=== PATIENT | female | born 1960 | race Caucasian/White ===

== ENCOUNTER 2016-10-30 11:44 | Emergency (ER) | payer MEDICARE ==
[2016-10-30 11:56] VITALS: BP 154/94
[2016-10-30 12:55] LABS: Hematocrit 37 % (35-47); Hemoglobin 12.4 g/dl (12.0-16.0); Mean Corpuscular HGB Conc 33 g/dl (31-36); Mean Corpuscular Hemoglobin 32 pg (27-31); Mean Corpuscular Volume 96 fL (80-97); Mean Platelet Volume 9 um3 (7.4-10.4); Red Blood Count 3.86 10^6/ul (4.0-5.4); Red Cell Distribution Width 14 % (10.5-15); White Blood Count 5.5 10^3/ul (3.5-10.8)
[2016-10-30 13:06] LABS: ALT 26 U/L (7-52); AST 45 U/L (13-39); Albumin 3.7 g/dL (3.2-5.2); Alkaline Phosphatase 89 U/L (34-104); Blood Urea Nitrogen 17 mg/dL (6-24); CO2 Carbon Dioxide 25 mmol/L (22-32); Calcium 8.3 mg/dL (8.6-10.3); Chloride 103 mmol/L (101-111); EGFR African American 94.8 (>60); EGFR Non-African American 73.7 (>60); Globulin 3.2 g/dL (2-4); Glucose 88 mg/dL (70-100); Magnesium 1.4 mg/dL (1.9-2.7); Sodium 136 mmol/L (133-145); Total Protein 6.9 g/dL (6.4-8.9)
[2016-10-30 13:11] LABS: Anion Gap 8 mmol/L (2-11); Potassium 2.7 mmol/L (3.5-5.0)
--- NOTE | 2016-10-30 13:15 | RAD ---
INDICATION: Seizure COMPARISON: May 30, 2016 TECHNIQUE: PA and lateral dual-energy views were obtained. FINDINGS: Bones/Soft Tissues: There are no acute bony findings. There is prior cervical fusion Cardiomediastinal: The cardiomediastinal silhouette is normal. Lungs: There are no infiltrates. Pleura: There are no pleural effusions. Other: None IMPRESSION: NO ACTIVE DISEASE.
[2016-10-30 13:16] LABS: Alcohol < 10 mg/dL (<10); Valproic Acid < 13.0 mcg/mL (50-100)
[2016-10-30] MEDS ORDERED: Potassium Chlor TAB* 20 MEQ TAB.ER PO ONE (13:28)
[2016-10-30] MEDS: KCL 10 MEQ/50 ML IVPREMIX* 10 MEQ/50 ML BAG IV SCH ×2 (13:46→14:45)
--- NOTE | 2016-10-30 16:48 | ED ---
Nathaniel Hui Adam, scribed for Anderson Nye MD on 10/30/16 at 1245 . Neurological HPI - HPI Summary HPI Summary: Pt is a 56 year old female presenting with a seizure this morning. She states that she and her fiance were going to go to [employer] to get breakfast when she had a seizure. She denies any incontinence or tongue biting. She has a Hx of seizures and takes Topamax. She sees Dr. Davenport. Negative FMHx. - History of Current Complaint Chief Complaint: EDSeizure Stated Complaint: SEIZURE Time Seen by Provider: 10/30/16 12:10 Hx Obtained From: Patient Onset/Duration: Sudden Onset, Started hours ago, Resolved Timing: Intermittent Episodes Lasting: - Seconds Onset Severity: Moderate Current Severity: None Seizure Severity: Moderate Pain Intensity: 0 Pain Scale Used: 0-10 Numeric Aggravating: Unknown Alleviating: Spontanious Resolution Associated Signs and Symptoms: Negative: Incontinent Bladder/Bowel Related Hx: Seizure - Additional Pertinent History Primary Care Physician: JOSE L - Allergy/Home Medications Allergies/Adverse Reactions: Allergies Allergy/AdvReac Type Severity Reaction Status Date / Time Azithromycin Allergy Intermediate Flushing Verified 10/30/16 11:50 [From Zithromax Z-[place]] Levofloxacin [From Levaquin] Allergy Intermediate Flushing Verified 10/30/16 11: 50 Triamterene Allergy Intermediate Blisters Verified 10/30/16 11:50 Atenolol Allergy ITCHY RASH Verified 10/30/16 11:50 Erythromycin Allergy Rash Verified 10/30/16 11:50 Gabapentin AdvReac Intermediate Nausea And Verified 10/30/16 11:50 Vomiting Home Medications: Home Medications Rivaroxaban TAB(*) [Xarelto 20 mg] 20 mg PO DAILY WITH MEAL 10/30/16 [History Confirmed 10/30/16] Topiramate 50 mg PO BID 10/30/16 [History Confirmed 10/30/16] Tramadol ER(NF) [Ultram ER(NF)] 200 mg PO DAILY 10/30/16 [History Confirmed 09/05] traMADol TAB* [Ultram*] 50 mg PO QID PRN 10/30/16 [History Confirmed 10/30/16] PMH/Surg Hx/FS Hx/Imm Hx Endocrine/Hematology History: Reports: Hx Anticoagulant Therapy Denies: Hx Diabetes Cardiovascular History: Reports: Hx Hypertension - REACTION TO B/P MED Denies: Hx Pacemaker/ICD Respiratory History: Reports: Hx Pulmonary Embolism - 2006 TAKING XARELTO, Hx Seasonal Allergies Denies: Other Respiratory Problems/Disorders GI History: Denies: Other GI Disorders - denies History: Denies: Hx Renal Disease Musculoskeletal History: Reports: Other Musculoskeletal History - Neck Pain Sensory History: Reports: Hx Contacts or Glasses - READING GLASSES Denies: Hx Hearing Aid Opthamlomology History: Reports: Hx Contacts or Glasses - READING GLASSES Neurological History: Reports: Hx Headaches, Hx Seizures - HX OF LAST ONE 2-3 YEARS AGO, Other Neuro Impairments/Disorders Psychiatric History: Reports: Hx Anxiety - CONTROL WITH MEDS, Hx Depression, Hx Bipolar Disorder Denies: Hx Panic Disorder - Cancer History Cancer Type, Location and Year: right breast lump removed (benign) - Surgical History Surgery Procedure, Year, and Place: 11/2007 C5-C6 ACDF WITH BONE FUSION AND PLATING, [facility]. 04/2008 BILATERAL TUBAL LIGATION, [facility]. 2010 SIGMOIDOSCOPY, [facility]. 2012 EGD, [facility]. 2013 COLONOSCOPY, [facility]; CERVICAL SURGERY NOV [address] SAEZ. 2014 RIGHT BREAST LUMPECTOMY, (BENIGN), [facility]. (POLYPS REMOVED FROM THROAT X 2 AND BOWEL X 1) Hx Anesthesia Reactions: No Infectious Disease History: No Infectious Disease History: Denies: History Other Infectious Disease, Traveled Outside the in Last 30 Days - Family History Known Family History: Positive: None - Per pt - Social History Occupation: Unemployed Lives: Alone Alcohol Use: Occasionally Alcohol Amount: BEERS AND MALTED LIQUOR Hx Substance Use: No Substance Use Type: Reports: None Substance Use Comment - Amount & Last Used: Tramadol Hx Tobacco Use: Yes Smoking Status (MU): Former Smoker Type: Cigarettes Amount Used/How Often: 3-4 CIGARETTES WEEK Length of Time of Smoking/Using Tobacco: 20 YEARS Have You Smoked in the Last Year: Yes Review of Systems Genitourinary: Negative Negative: incontinence Skin: Negative - Didn't bite tongue Neurological: Other - Seizure All Other Systems Reviewed And Are Negative: Yes Physical Exam - Summary Physical Exam Summary: VITAL SIGNS: Reviewed. GENERAL: Patient is a well developed and nourished female who is lying comfortable in the stretcher. Patient is not in any acute respiratory distress. HEAD AND FACE: No signs of trauma. No ecchymosis, hematomas or skull depressions. No sinus tenderness. EYES: PERRLA, EOMI x 2, No injected conjunctiva, no nystagmus. No photophobia. EARS: Hearing grossly intact. Ear canals and tympanic membranes are within normal limits. MOUTH: Oropharynx within normal limits. NECK: Supple, trachea is midline, no adenopathy, no JVD, no carotid bruit, no c- spine tenderness, neck with full ROM. No meningeal signs, no Kernig's or brudzinskis signs. CHEST: Symmetric, no tenderness at palpation LUNGS: Clear to auscultation bilaterally. No wheezing or crackles. CVS: Regular rate and rhythm, S1 and S2 present, no murmurs or gallops appreciated. ABDOMEN: Soft, non-tender. No signs of distention. No rebound no guarding, and no masses palpated. Bowel sounds are normal. EXTREMITIES: FROM in all major joints, no edema, no cyanosis or clubbing. NEURO: Alert and oriented x 3. No acute neurological deficits. Speech is normal and follows commands. SKIN: Dry and warm Triage Information Reviewed: Yes Vital Signs On Initial Exam: Initial Vitals Temp Pulse Resp BP Pulse Ox 99.0 F 94 19 154/94 99 10/30/16 11:50 10/30/16 11:50 10/30/16 11:50 10/30/16 11:50 10/30/16 11:50 Vital Signs Reviewed: Yes Diagnostics - Vital Signs Vital Signs Temp Pulse Resp BP Pulse Ox 10/30/16 11:50 99.0 F 94 19 154/94 99 - Laboratory Lab Results: Lab Results 10/30/16 10/30/16 10/30/16 Range/Units 12:09 12:09 12:09 WBC 5.5 (3.5-10.8) 10^3/ul RBC 3.86 L (4.0-5.4) 10^6/ul Hgb 12.4 (12.0-16.0) g/dl Hct 37 (35-47) % MCV 96 (80-97) fL MCH 32 H (27-31) pg MCHC 33 (31-36) g/dl RDW 14 (10.5-15) % Plt Count 149 L (150-450) 10^3/ul MPV 9 (7.4-10.4) um3 Neut % (Auto) 48.4 (38-83) % Lymph % (Auto) 33.3 (25-47) % [place] % (Auto) 9.4 H (1-9) % Eos % (Auto) 7.0 H (0-6) % Baso % (Auto) 1.9 (0-2) % Absolute Neuts (auto) 2.7 (1.5-7.7) 10^3/ul Absolute Lymphs (auto) 1.8 (1.0-4.8) 10^3/ul Absolute Monos (auto) 0.5 (0-0.8) 10^3/ul Absolute Eos (auto) 0.4 (0-0.6) 10^3/ul Absolute Basos (auto) 0.1 (0-0.2) 10^3/ul Absolute Nucleated RBC 0 10^3/ul Nucleated RBC % 0.1 INR (Anticoag Therapy) 0.91 (0.89-1.11) Sodium 136 (133-145) mmol/L Potassium 2.7 L* (3.5-5.0) mmol/L Chloride 103 (101-111) mmol/L Carbon Dioxide 25 (22-32) mmol/L Anion Gap 8 (2-11) mmol/L BUN 17 (6-24) mg/dL Creatinine 0.81 (0.51-0.95) mg/dL Est GFR ( Amer) 94.8 (>60) Est GFR (Non-Af Amer) 73.7 (>60) BUN/Creatinine Ratio 21.0 H (8-20) Glucose 88 (70-100) mg/dL Lactic Acid (0.5-2.0) mmol/L Calcium 8.3 L (8.6-10.3) mg/dL Magnesium 1.4 L (1.9-2.7) mg/dL Total Bilirubin 0.60 (0.2-1.0) mg/dL AST 45 H (13-39) U/L ALT 26 (7-52) U/L Alkaline Phosphatase 89 (34-104) U/L Total Protein 6.9 (6.4-8.9) g/dL Albumin 3.7 (3.2-5.2) g/dL Globulin 3.2 (2-4) g/dL Albumin/Globulin Ratio 1.2 (1-3) Valproic Acid < 13.0 L (50-100) mcg/mL Serum Alcohol < 10 (<10) mg/dL 10/30/16 Range/Units 12:09 WBC (3.5-10.8) 10^3/ul RBC (4.0-5.4) 10^6/ul Hgb (12.0-16.0) g/dl Hct (35-47) % MCV (80-97) fL MCH (27-31) pg MCHC (31-36) g/dl RDW (10.5-15) % Plt Count (150-450) 10^3/ul MPV (7.4-10.4) um3 Neut % (Auto) (38-83) % Lymph % (Auto) (25-47) % [place] % (Auto) (1-9) % Eos % (Auto) (0-6) % Baso % (Auto) (0-2) % Absolute Neuts (auto) (1.5-7.7) 10^3/ul Absolute Lymphs (auto) (1.0-4.8) 10^3/ul Absolute Monos (auto) (0-0.8) 10^3/ul Absolute Eos (auto) (0-0.6) 10^3/ul Absolute Basos (auto) (0-0.2) 10^3/ul Absolute Nucleated RBC 10^3/ul Nucleated RBC % INR (Anticoag Therapy) (0.89-1.11) Sodium (133-145) mmol/L Potassium (3.5-5.0) mmol/L Chloride (101-111) mmol/L Carbon Dioxide (22-32) mmol/L Anion Gap (2-11) mmol/L BUN (6-24) mg/dL Creatinine (0.51-0.95) mg/dL Est GFR ( Amer) (>60) Est GFR (Non-Af Amer) (>60) BUN/Creatinine Ratio (8-20) Glucose (70-100) mg/dL Lactic Acid 1.6 (0.5-2.0) mmol/L Calcium (8.6-10.3) mg/dL Magnesium (1.9-2.7) mg/dL Total Bilirubin (0.2-1.0) mg/dL AST (13-39) U/L ALT (7-52) U/L Alkaline Phosphatase (34-104) U/L Total Protein (6.4-8.9) g/dL Albumin (3.2-5.2) g/dL Globulin (2-4) g/dL Albumin/Globulin Ratio (1-3) Valproic Acid (50-100) mcg/mL Serum Alcohol (<10) mg/dL Result Diagrams: 10/30/16 12:09 10/30/16 12:09 Lab Statement: Any lab studies that have been ordered have been reviewed, and results considered in the medical decision making process. - Radiology CXR Xray Interpretation: No Acute Changes Radiology Interpretation Completed By: Radiologist - EKG 11:54 Cardiac Rate: NL - 90 BPM EKG Rhythm: Sinus Rhythm - Normal EKG Interpretation: No ST elevation. Diffuse T wave abnormality. - Additional Comments Diagnostic Additional Comments: Potassium - 2.7 Course/Dx - Course Assessment/Plan: Pt is a 56 year old female presenting with a seizure this morning. She states that she and her fiance were going to go to [employer] to get breakfast when she had a seizure. She denies any incontinence or tongue biting. She has a Hx of seizures and takes Topiramate 50 mg BID[address] She sees Dr. Davenport. She reports she is adherent to her medications. Labs found to be WNL except for hypokalemia od 2.7 for which she was given potassium chloride. CXR shows no acute disease. EKG NSR w/o MARIBETH. CXR impression hiatal hernia. No active disease. EEG was done and it will be read by Dr. Davenport. I discussed the case with Dr. Davenport who recommends to increase her Topiramate dose to 50 mg AM and 100 mg PM. She will be seeing the patient tomorrow. Patient was recommended not to drive and to stop taking Ultram. Patient and her daughter understands and agree. I discussed all the findings and test results with the patient. Patient was instructed to return to the emergency room immediately if any of the symptoms return or worsens. Patient understands and agrees. Plan of care was discussed with the patient and patient understands and agrees with the plan of care. All questions were answered at patient satisfaction. There were no further complaints or concerns. Patient is alert and oriented x 3. Patient vital signs are stable. Patient is to follow up with primary care physician in the next 2 to 3 days. Patient understands and agrees. - Differential Dx Differential Diagnoses Neuro: Positive: Anxiety, Headache, Migraine, Seizure Disorder - Diagnoses Provider Diagnoses: Seizure Discharge - Discharge Plan Condition: Stable Disposition: HOME Patient Education Materials: Epilepsy (ED) Referrals: Annel Davenport MD [Medical Doctor] - Additional Instructions: Follow up with Dr. Davenport tomorrow (10/31). The documentation as recorded by the Nathaniel odonnell Adam accurately reflects the service I personally performed and the decisions made by , Anderson Nye MD.
[2016-10-30 16:57] LABS: Urine Bilirubin Negative (Negative); Urine Glucose Negative (Negative); Urine Nitrite Negative (Negative)
[2016-10-30] MEDS ORDERED: Magnesium Oxide TAB* 400 MG PO ONE (17:01)
[2016-10-30 17:04] LABS: Benzodiazepine Urine Screen None Detected (None Detect)
--- NOTE | 2016-10-31 23:33 | EEG ---
ELECTROENCEPHALOGRAPHY: DATE OF STUDY: 10/30/16 - EMERGENCY DEPT. PATIENT OF: Dr. Nye in the emergency room. HISTORY: This 56-year-old woman being evaluated for her history of seizures with a witnessed grand mal seizure, generalized motor seizure today, and then with postictal. MEDICATIONS: Include: 1. Topamax. 2. Tramadol. INTERPRETATION: With the patient awake, background cerebral activity consists of moderate amplitude posterior dominant 8 to 9 Hz rhythm, which attenuates with eye opening and reappears with eye closure. 8 to 9 Hz rhythm with admixed theta activity. There is muscle movement artifact. No activation procedures are performed. The patient never falls asleep. IMPRESSION: This EEG with the patient awake and drowsy shows no epileptiform potentials, some of the slowing noted may be due to postictal state. [id number]/[facility] #: [id number] MTDD
== END 2016-10-30 17:28 | disposition home or self-care (01) ==
LOC: ED 11:44
DX: R56.9 Unspecified convulsions (principal); Z87.891 Personal history of nicotine dependence
CPT/HCPCS: 36415; 71020; 80053; 80164; 80307; 80320; 81003; 83605; 83735; 85025; 85610; 93005; 95819; 96365; 99282; A9270-GY; G0480; J3480

== ENCOUNTER 2017-11-09 15:26 | Inpatient (IN) | payer MEDICARE ==
[2017-11-09] MEDS ORDERED: NS 0.9% 1000 ML* 1,000 ML IV ONE ×2 (16:59→17:45)
--- NOTE | 2017-11-09 17:31 | RAD ---
HISTORY: Altered mental status COMPARISONS: October 30, 2016 VIEWS: 1: frontal portable view of the chest at 5:12 PM FINDINGS: LINES AND TUBES: None. CARDIOMEDIASTINAL SILHOUETTE: The cardiomediastinal silhouette is normal for portable technique. PLEURA: The costophrenic angles are sharp. No pleural abnormalities are noted. LUNG PARENCHYMA: There is confluent alveolar opacification of left mid and lower lung mustafa. ABDOMEN: The upper abdomen is clear. There is no subphrenic gas. BONES AND SOFT TISSUES: The patient is status post anterior cervical fusion. IMPRESSION: LEFT MIDDLE AND LOWER LUNG CONSOLIDATION. RECOMMEND FOLLOW-UP UNTIL RESOLUTION TO EXCLUDE UNDERLYING PULMONARY PARENCHYMAL PATHOLOGY.
[2017-11-09 17:35] LABS: Hematocrit 39 % (35-47); Mean Corpuscular HGB Conc 34 g/dl (31-36); Mean Corpuscular Hemoglobin 32 pg (27-31); Mean Corpuscular Volume 95 fL (80-97); Mean Platelet Volume 11 um3 (7.4-10.4); Red Blood Count 4.05 10^6/ul (4.0-5.4); Red Cell Distribution Width 15 % (10.5-15); White Blood Count 7.7 10^3/ul (3.5-10.8)
[2017-11-09 17:48] LABS: INR 4.53 (0.77-1.02)
[2017-11-09 17:58] LABS: ABS Basophils 0 10^3/ul (0-0.2); ABS Eosinophils 0 10^3/ul (0-0.6); ABS Lymphocytes 0.8 10^3/ul (1.0-4.8); ABS Neutrophils 5.8 10^3/ul (1.5-7.7); ABS Nucleated RBC 0 10^3/ul; Eosinophil % 0.4 % (0-6); Lymphocyte % 10.9 % (25-47); Nucleated Red Blood Cells % 0.2; Platelet Count 69 10^3/ul (150-450)
--- NOTE | 2017-11-09 18:15 | RAD ---
HISTORY: Altered mental status COMPARISONS: Head CT dated February 16, 2016 TECHNIQUE: Multiple contiguous axial CT scans were obtained of the head without intravenous contrast. FINDINGS: HEMORRHAGE/INFARCT: There is no hemorrhage or acute infarct. MASSES/SHIFT: There is no mass or shift. EXTRA-AXIAL SPACES: There are no extra-axial fluid collections. SULCI AND VENTRICLES: The sulci and ventricles are normal in size and position for the patient's stated age. CEREBRUM: There are no focal parenchymal abnormalities. BRAINSTEM: There are no focal parenchymal abnormalities. CEREBELLUM: There are no focal parenchymal abnormalities. VESSELS: The vessels are grossly normal. PARANASAL SINUSES: There is mucosal thickening of the left maxillary sinus. ORBITS: The orbits are unremarkable. BONES AND SOFT TISSUE: No bone or soft tissue abnormalities are noted. OTHER: None IMPRESSION: NO ACUTE INTRACRANIAL PATHOLOGY.
--- NOTE | 2017-11-09 18:18 | ADMNOTE ---
Subjective Date of Service: 11/09/17 Interval History: ADMISSION HISTORY AND PHYSICAL EXAM: Allergies Allergy/AdvReac Type Severity Reaction Status Date / Time Azithromycin Allergy Intermediate Flushing Verified 11/07/16 10:16 [From Zithromax Z-[place]] Levofloxacin [From Levaquin] Allergy Intermediate Flushing Verified 11/07/16 10: 16 Triamterene Allergy Intermediate Blisters Verified 11/07/16 10:16 Atenolol Allergy ITCHY RASH Verified 11/07/16 10:16 Erythromycin Allergy Rash Verified 11/07/16 10:16 Gabapentin AdvReac Intermediate Nausea And Verified 11/07/16 10:16 Vomiting Home Medications Medication Instructions Recorded Confirmed Type Rivaroxaban TAB(*) [Xarelto 20 mg] 20 mg PO DAILY WITH MEAL 10/30/16 10/30/16 History Topiramate [Topiramate 50 mg tab] 50 mg PO BID 10/30/16 10/30/16 History Tramadol ER(NF) [Ultram ER(NF)] 200 mg PO DAILY 10/30/16 10/30/16 History traMADol TAB* [Ultram*] 50 mg PO QID PRN 10/30/16 10/30/16 History HPI: The patient was in her usual state of health until about 11/04 when she developed a cough and a fever. She saw Dr. Oliver on 11/06 and tested positive for flu and was prescribed oseltamivir which she took. Today the patient's mother phoned the patient and there was no answer. The patient was found in her home incoherent, naked from the waist down, with evidence of vomiting. Family History: Findings - Breast ca in [place], leukemia in [place], HTN Social History: Findings - SDM is her daughter Janine Bullock. Smokes. Heavy drinker. Lives alone. Past Medical History: Findings - cervical laminectomy, bipolar disorder, seizure disorder, PE with elevated homocysteine level, HTN, migraines. Review of Systems - Measurements Intake and Output: Intake and Output Last 24 Hours 11/07/17 11/08/17 11/09/17 11/10/17 06:59 06:59 06:59 06:59 Weight 135 lb Objective Active Medications: Sodium Chloride (Ns 0.9% 1000 Ml*) 1,000 mls @ 1,000 mls/hr IV .PER RATE ONE Stop: 11/09/17 18:44 Vital Signs - 8 hr 11/09/17 11/09/17 11/09/17 15:28 15:56 15:58 Temperature 99.3 F Pulse Rate 56 97 Respiratory 18 Rate Blood Pressure 111/65 133/82 (mmHg) O2 Sat by Pulse 96 95 Oximetry 11/09/17 11/09/17 11/09/17 16:00 16:02 16:30 Temperature Pulse Rate 103 99 Respiratory Rate Blood Pressure 123/74 121/81 (mmHg) O2 Sat by Pulse 94 88 Oximetry 11/09/17 11/09/17 11/09/17 17:00 17:13 17:19 Temperature Pulse Rate 97 Respiratory Rate Blood Pressure 139/106 (mmHg) O2 Sat by Pulse 93 95 Oximetry 11/09/17 11/09/17 11/09/17 17:25 17:30 18:00 Temperature Pulse Rate 96 100 Respiratory Rate Blood Pressure 143/81 120/87 (mmHg) O2 Sat by Pulse 94 97 Oximetry Oxygen Devices in Use Now: None Appearance: Lethargic, restless, on ED stretcher. Eyes: - - scleral icterus Neck: NL Appearance and Movements; NL JVP, No Thyroid Enlargement, Masses Respiratory: Symmetrical Chest Expansion and Respiratory Effort, Clear to Auscultation, Clear to Percussion Cardiovascular: NL Sounds; No Murmurs; No JVD, RRR, No Edema, - Abdominal: NL Sounds; No Tenderness; No Distention, No Hepatosplenomegaly, - Extremities: No Edema, No Clubbing, Cyanosis, - Skin: No Nodules or Sclerosis, - - some spider angiomata around neck. Palmar erythema Neurological: NL Sensation - MULTANI. Marked asterixis, - - MULTANI. Marked asterixis. Speech slurred. Able to state her full name. Poorly engaged with the examiner. Result Diagrams: 11/10/17 05:51 11/10/17 05:51 Assess/Plan/Problems-Billing Assessment: - Patient Problems (1) Hepatic encephalopathy Current Visit: Yes Status: Acute Code(s): K72.90 - HEPATIC FAILURE, UNSPECIFIED WITHOUT COMA SNOMED Code(s): 17492928 Comment: Exacerbated by other medical problems. Lactulose 30 ml q 4 hr, repeat ammonia level 11/10. Note marked alcohoic hepatitis. Acute hep panel ordered. (2) Chronic alcoholism Current Visit: Yes Status: Acute Code(s): F10.20 - ALCOHOL DEPENDENCE, UNCOMPLICATED SNOMED Code(s): 8776190 Comment: She will eventually need SW consulatation. (3) Tobacco abuse Current Visit: Yes Status: Acute Code(s): Z72.0 - TOBACCO USE SNOMED Code( s): 008688655 (4) Pneumonia Current Visit: Yes Status: Acute Code(s): J18.9 - PNEUMONIA, UNSPECIFIED ORGANISM SNOMED Code(s): 157405598 Comment: Likely aspirated her vomitus at home. Continue pip/jonny. (5) Dehydration Current Visit: Yes Status: Acute Code(s): E86.0 - DEHYDRATION SNOMED Code( s): 65645358 Comment: IVF. Follow BMP, I&O's. (6) Coagulopathy Current Visit: Yes Status: Acute Comment: Hx elevated homocysteine level, PE. Hold antioagulant as INR >4, severe liver dysfunction.
[2017-11-09] MEDS ORDERED: Piperacillin/Tazobac ADVAN(*) 3.375 GM in NS 0.9% 100 ML* 100 ML IVPB ONE (18:37)
[2017-11-09 19:05] LABS: Urine Appearance Cloudy; Urine Blood 2+ (Negative); Urine Color Amber; Urine Ketones Trace (Negative); Urine Protein 1+(30 mg/dL) (Negative); Urine Specific Gravity 1.019 (1.010-1.030); Urine Urobilinogen Positive (Negative)
[2017-11-09] MEDS: Acetaminophen TAB* 325 MG PO PRN (19:51)
--- NOTE | 2017-11-09 22:03 | ED ---
Toni Hui Julia, scribed for [place] MD on 11/09/17 at 1652 . HPI Febrile Illness - HPI Summary HPI Summary: This patient is a 57 year old F presenting to [facility] accompanied by her daughters with a chief complaint of delusions associated with worsening influenza symptoms. Daughter reports cough, weakness, fatigue, SOB, decreased appetite and fluid intake. Patient repeats that her symptoms are the flu. Patient was diagnosed with influenza B on 11/06/[address] Bell. Patient is oriented to situation but not time. - History of Current Complaint Chief Complaint: EDAltMentalStatus Time Seen by Provider: 11/09/17 16:01 Hx Obtained From: Family/Clerical And Administrative Workers Hx From Patient Unobtainable Due To: Altered Mental Status Onset/Duration: Started Days Ago Timing: Constant Initial Severity: Mild Current Severity: Moderate Pain Intensity: 0 Pain Scale Used: 0-10 Numeric Associated Signs and Symptoms: Other: - cough, weakness, fatigue, SOB, decreased appetite and fluid intake - Additional Pertinent History Primary Care Physician: JOSE L - Allergy/Home Medications Allergies/Adverse Reactions: Allergies Allergy/AdvReac Type Severity Reaction Status Date / Time Azithromycin Allergy Intermediate Flushing Verified 11/07/16 10:16 [From Zithromax Z-[place]] Levofloxacin [From Levaquin] Allergy Intermediate Flushing Verified 11/07/16 10: 16 Triamterene Allergy Intermediate Blisters Verified 11/07/16 10:16 Atenolol Allergy ITCHY RASH Verified 11/07/16 10:16 Erythromycin Allergy Rash Verified 11/07/16 10:16 Gabapentin AdvReac Intermediate Nausea And Verified 11/07/16 10:16 Vomiting PMH/Surg Hx/FS Hx/Imm Hx Endocrine/Hematology History: Reports: Hx Anticoagulant Therapy Denies: Hx Diabetes Cardiovascular History: Reports: Hx Hypertension - REACTION TO B/P MED Denies: Hx Pacemaker/ICD Respiratory History: Reports: Hx Pulmonary Embolism - 2006 TAKING XARELTO, Hx Seasonal Allergies Denies: Other Respiratory Problems/Disorders GI History: Denies: Other GI Disorders - denies History: Denies: Hx Renal Disease Musculoskeletal History: Reports: Other Musculoskeletal History - Neck Pain Sensory History: Reports: Hx Contacts or Glasses - READING GLASSES Denies: Hx Hearing Aid Opthamlomology History: Reports: Hx Contacts or Glasses - READING GLASSES Neurological History: Reports: Hx Headaches, Hx Seizures - HX OF LAST ONE 2-3 YEARS AGO, Other Neuro Impairments/Disorders Psychiatric History: Reports: Hx Anxiety - CONTROL WITH MEDS, Hx Depression, Hx Bipolar Disorder Denies: Hx Panic Disorder - Cancer History Cancer Type, Location and Year: right breast lump removed (benign) - Surgical History Surgery Procedure, Year, and Place: 11/2007 C5[place]C6 [place] [facility] [place] [facility] [place] [facility] [place] [facility] [place] [facility] [place] CERV[place] SURG[place] NOV [address] SAEZ. 2014 [place], [place] [facility] [place]POLYPS REMOVED FROM THROAT X 2 AND BOWEL X 1) Hx Anesthesia Reactions: No Infectious Disease History: No Infectious Disease History: Denies: History Other Infectious Disease, Traveled Outside the in Last 30 Days - Family History Known Family History: Positive: None - Per pt - Social History Alcohol Use: Occasionally Alcohol Amount: BEERS AND MALTED LIQUOR Hx Substance Use: No Substance Use Type: Reports: None Substance Use Comment - Amount & Last Used: Tramadol Hx Tobacco Use: Yes Smoking Status (MU): Light Every Day Tobacco Smoker Type: Cigarettes Amount Used/How Often: 3-4 CIGARETTES WEEK Length of Time of Smoking/Using Tobacco: 20 YEARS Have You Smoked in the Last Year: Yes Review of Systems Positive: Fatigue, Other - weakness Positive: Shortness Of Breath, Cough Gastrointestinal: Other - decreased appetite and fluid intake Neurological: Other - delusions Positive: Other All Other Systems Reviewed And Are Negative: Yes - Comments Additional Review of Systems Comments: Patients daughter reports symptoms due to AMS. Physical Exam Vital Signs On Initial Exam: Initial Vitals Temp Pulse Resp BP Pulse Ox 99.3 F 56 18 111/65 96 11/09/17 15:28 11/09/17 15:28 11/09/17 15:28 11/09/17 15:28 11/09/17 15:28 - [place] Coma Scale Coma Scale Total: 14 Diagnostics - Vital Signs Vital Signs Temp Pulse Resp BP Pulse Ox 11/09/17 16:30 121/81 11/09/17 16:02 99 88 11/09/17 16:00 103 123/74 94 11/09/17 15:58 97 95 11/09/17 15:56 133/82 11/09/17 15:28 99.3 F 56 18 111/65 96 - Laboratory Lab Results: Lab Results 11/09/17 11/09/17 11/09/17 Range/Units 17:03 17:03 17:03 WBC 7.7 (3.5-10.8) 10^3/ul RBC 4.05 (4.0-5.4) 10^6/ul Hgb 13.0 (12.0-16.0) g/dl Hct 39 (35-47) % MCV 95 (80-97) fL MCH 32 H (27-31) pg MCHC 34 (31-36) g/dl RDW 15 (10.5-15) % Plt Count 69 L (150-450) 10^3/ul MPV 11 H (7.4-10.4) um3 Neut % (Auto) 75.3 (38-83) % Lymph % (Auto) 10.9 L (25-47) % Franklin % (Auto) 12.8 H (1-9) % Eos % (Auto) 0.4 (0-6) % Baso % (Auto) 0.6 (0-2) % Absolute Neuts (auto) 5.8 (1.5-7.7) 10^3/ul Absolute Lymphs (auto) 0.8 L (1.0-4.8) 10^3/ul Absolute Monos (auto) 1.0 H (0-0.8) 10^3/ul Absolute Eos (auto) 0 (0-0.6) 10^3/ul Absolute Basos (auto) 0 (0-0.2) 10^3/ul Absolute Nucleated RBC 0 10^3/ul Nucleated RBC % 0.2 ESR 19 (0-30) mm/Hr Hem Pathologist Commnt Pending INR (Anticoag Therapy) 4.53 H (0.77-1.02) Sodium 135 (133-145) mmol/L Potassium 3.9 (3.5-5.0) mmol/L Chloride 103 (101-111) mmol/L Carbon Dioxide 21 L (22-32) mmol/L Anion Gap 11 (2-11) mmol/L BUN 34 H (6-24) mg/dL Creatinine 1.13 H (0.51-0.95) mg/dL Est GFR ( Amer) 64.3 (>60) Est GFR (Non-Af Amer) 50.0 (>60) BUN/Creatinine Ratio 30.1 H (8-20) Glucose 115 H (70-100) mg/dL Lactic Acid (0.5-2.0) mmol/L Calcium 8.4 L (8.6-10.3) mg/dL Total Bilirubin 4.40 H (0.2-1.0) mg/dL AST 3833 H (13-39) U/L ALT 1823 H (7-52) U/L Alkaline Phosphatase 128 H (34-104) U/L Ammonia (16-53) mol/L Total Creatine Kinase 111 (10-223) U/L Troponin I 0.04 H* (<0.04) ng/mL C-Reactive Protein 92.50 H (< 5.00) mg/L Total Protein 6.1 L (6.4-8.9) g/dL Albumin 3.1 L (3.2-5.2) g/dL Globulin 3.0 (2-4) g/dL Albumin/Globulin Ratio 1.0 (1-3) Lipase 71 (11.0-82.0) U/L Salicylates < 2.50 (<30) mg/dL Acetaminophen < 15 mcg/mL 11/09/17 11/09/17 Range/Units 17:03 18:11 WBC (3.5-10.8) 10^3/ul RBC (4.0-5.4) 10^6/ul Hgb (12.0-16.0) g/dl Hct (35-47) % MCV (80-97) fL MCH (27-31) pg MCHC (31-36) g/dl RDW (10.5-15) % Plt Count (150-450) 10^3/ul MPV (7.4-10.4) um3 Neut % (Auto) (38-83) % Lymph % (Auto) (25-47) % Franklin % (Auto) (1-9) % Eos % (Auto) (0-6) % Baso % (Auto) (0-2) % Absolute Neuts (auto) (1.5-7.7) 10^3/ul Absolute Lymphs (auto) (1.0-4.8) 10^3/ul Absolute Monos (auto) (0-0.8) 10^3/ul Absolute Eos (auto) (0-0.6) 10^3/ul Absolute Basos (auto) (0-0.2) 10^3/ul Absolute Nucleated RBC 10^3/ul Nucleated RBC % ESR (0-30) mm/Hr Hem Pathologist Commnt INR (Anticoag Therapy) (0.77-1.02) Sodium (133-145) mmol/L Potassium (3.5-5.0) mmol/L Chloride (101-111) mmol/L Carbon Dioxide (22-32) mmol/L Anion Gap (2-11) mmol/L BUN (6-24) mg/dL Creatinine (0.51-0.95) mg/dL Est GFR ( Amer) (>60) Est GFR (Non-Af Amer) (>60) BUN/Creatinine Ratio (8-20) Glucose (70-100) mg/dL Lactic Acid 3.1 H* (0.5-2.0) mmol/L Calcium (8.6-10.3) mg/dL Total Bilirubin (0.2-1.0) mg/dL AST (13-39) U/L ALT (7-52) U/L Alkaline Phosphatase (34-104) U/L Ammonia 141 H (16-53) mol/L Total Creatine Kinase (10-223) U/L Troponin I (<0.04) ng/mL C-Reactive Protein (< 5.00) mg/L Total Protein (6.4-8.9) g/dL Albumin (3.2-5.2) g/dL Globulin (2-4) g/dL Albumin/Globulin Ratio (1-3) Lipase (11.0-82.0) U/L Salicylates (<30) mg/dL Acetaminophen mcg/mL Result Diagrams: 11/09/17 17:03 11/09/17 17:03 Lab Statement: Any lab studies that have been ordered have been reviewed, and results considered in the medical decision making process. - Radiology CXR Radiology Interpretation Completed By: Radiologist - LEFT MIDDLE AND LOWER LUNG CONSOLIDATION. RECOMMEND FOLLOW-UP UNTIL RESOLUTION TO EXCLUDE UNDERLYING PULMONARY PARENCHYMAL PATHOLOGY. ED Physician has reviewed this report. - CT Brain CT Interpretation Completed By: Radiologist - NO ACUTE INTRACRANIAL PATHOLOGY. ED Physician has reviewed this report. - EKG 15:37 Cardiac Rate: NL EKG Rhythm: Sinus Rhythm - at 96 BPM Ectopy: PACs EKG Interpretation: L axis deviation Course/Dx - Course Course Of Treatment: Ms. Bullock presented very confused and was found to have hepatic encephalopathy. She is being admitted to the hospitalist service. - Diagnoses Provider Diagnoses: Hepatic encephalopathy, Pneumonia - Provider Notifications Discussed Care Of Patient With: Lionel Perez Time Discussed With Above Provider: 17:55 Instructed by Provider To: MD Will See In ED - Critical Care Time Critical Care Time: 30-74 min Discharge - Discharge Plan Condition: Stable Disposition: ADMITTED TO [facility] The documentation as recorded by the Toni odonnell Julia accurately reflects the service I personally performed and the decisions made by Urbano almeida Richard L, MD.
[2017-11-09] MEDS: NS 0.45% 1000 ML BAG* 1,000 ML IV SCH (22:16)
[2017-11-09] MEDS: Oseltamivir CAP* 75 MG CAP PO SCH (22:18)
[2017-11-09] MEDS: Topiramate TAB(*) 25 MG PO SCH (22:18)
[2017-11-10] MEDS ORDERED: Haloperidol INJ IV/IM* 5 MG/ML AMP IV ONE (00:08)
[2017-11-10] MEDS ORDERED: Haloperidol INJ IV/IM* 5 MG/ML AMP ONE (00:11)
[2017-11-10] MEDS ORDERED: Thiamine IV* 100 MG/ML 2 ML VIAL IM ONE (03:35)
[2017-11-10] MEDS ORDERED: LORazepam INJ* 2 MG/ML 1 ML VIAL ONE (03:47)
[2017-11-10] MEDS ORDERED: Thiamine IV* 100 MG/ML 2 ML VIAL ONE (03:55)
[2017-11-10] MEDS ORDERED: LORazepam INJ* 2 MG/ML 1 ML VIAL IV PUSH SCH (04:00)
[2017-11-10] MEDS: NS 0.45% 1000 ML BAG* 1,000 ML IV SCH (05:02)
[2017-11-10 06:29] LABS: ABS Basophils 0 10^3/ul (0-0.2); ABS Eosinophils 0 10^3/ul (0-0.6); ABS Lymphocytes 0.9 10^3/ul (1.0-4.8); ABS Monocytes 0.8 10^3/ul (0-0.8); ABS Neutrophils 5.6 10^3/ul (1.5-7.7); ABS Nucleated RBC 0 10^3/ul; Eosinophil % 0.1 % (0-6); Hematocrit 36 % (35-47); Lymphocyte % 11.8 % (25-47); Mean Corpuscular HGB Conc 34 g/dl (31-36); Mean Corpuscular Hemoglobin 32 pg (27-31); Mean Corpuscular Volume 95 fL (80-97); Mean Platelet Volume 11 um3 (7.4-10.4); Nucleated Red Blood Cells % 0.2; Platelet Count 88 10^3/ul (150-450); Red Blood Count 3.76 10^6/ul (4.0-5.4); Red Cell Distribution Width 15 % (10.5-15); White Blood Count 7.3 10^3/ul (3.5-10.8)
[2017-11-10 06:32] LABS: EGFR Non-African American 80.2 (>60)
[2017-11-10] MEDS ORDERED: D5W 1/2 NS KCl 20 Meq 1000 ML* 1,000 ML IV SCH (08:00)
[2017-11-10] MEDS: chlordiazePOXIDE CAP* 25 MG PO SCH ×4 (08:42→20:47)
[2017-11-10] MEDS: Piperacillin/Tazobac ADVAN(*) 3.375 GM in NS 0.9% 100 ML* 100 ML IVPB SCH ×2 (08:42→16:23)
[2017-11-10] MEDS: Topiramate TAB(*) 25 MG PO SCH ×2 (11:45→20:48)
[2017-11-10] MEDS: RiFAXimin* 550 MG TAB PO SCH ×3 (11:45→20:58)
[2017-11-10] MEDS: Potassium Chlor TAB* 20 MEQ TAB.ER PO SCH ×3 (11:45→20:50)
[2017-11-10] MEDS: Oseltamivir CAP* 75 MG CAP PO SCH ×2 (11:45→20:48)
[2017-11-10] MEDS: Thiamine TAB* 100 MG TAB PO SCH ×2 (12:27)
[2017-11-10] MEDS: Folic Acid TAB* 1 MG PO SCH (12:27)
[2017-11-10] MEDS: Multivitamins/Minerals TAB PO SCH (12:27)
[2017-11-10] MEDS: Lactulose 300 ML for PR* 10 GM/15 ML BTL PR SCH ×3 (13:37→19:59)
--- NOTE | 2017-11-10 13:50 | PN ---
Subjective Date of Service: 11/10/17 Interval History: Patient offers no c/o, mostly slept all day. Family History: Findings - Breast ca in [place], leukemia in [place], HTN Social History: Findings - SDM is her daughter Janine Bullock. Smokes. Heavy drinker. Lives alone. Past Medical History: Findings - cervical laminectomy, bipolar disorder, seizure disorder, PE with elevated homocysteine level, HTN, migraines. Objective Active Medications: Acetaminophen (Tylenol Tab*) 650 mg PO Q4H PRN PRN Reason: FEVER Last Admin: 11/09/17 19:51 Dose: 650 mg Chlordiazepoxide (Librium Cap*) 25 mg PO TID [facility] Last Admin: 11/10/17 11:44 Dose: Not Given Folic Acid (Folvite Tab*) 1 mg PO DAILY [facility] Last Admin: 11/10/17 12:27 Dose: Not Given Piperacillin Sod/Tazobactam (Sod 3.375 gm/ Sodium Chloride) 100 mls @ 25 mls/ hr IVPB Q8H [facility] Last Admin: 11/10/17 08:42 Dose: 25 mls/hr Potassium Chloride/Dextrose (D5w 1/2 Ns Kcl 20 Meq 1000 Ml*) 1,000 mls @ 125 mls/hr IV PER RATE [facility] Last Admin: 11/10/17 13:40 Dose: 125 mls/hr Lactulose (Lactulose*) 30 ml PO BID [facility] Lactulose (Lactulose 300 Ml For Pr*) 200 gm IN Q4H [facility] Last Admin: 11/10/17 13:37 Dose: Not Given Multivitamins/Minerals (Theragran/Minerals Tab*) 1 tab PO DAILY [facility] Last Admin: 11/10/17 12:27 Dose: Not Given Oseltamivir Phosphate (Tamiflu Cap*) 75 mg PO BID [facility] Stop: 11/14/17 09:01 Last Admin: 11/10/17 11:45 Dose: Not Given Potassium Chloride (Klor Con Er Tab*) 20 meq PO TID [facility] Last Admin: 11/10/17 11:45 Dose: Not Given Rifaximin (Xifaxan*) 550 mg PO BID [facility] Last Admin: 11/10/17 13:31 Dose: 550 mg Thiamine HCl (Vitamin B-1 Tab*) 100 mg PO DAILY [facility] Last Admin: 11/10/17 12:27 Dose: Not Given Thiamine HCl (Vitamin B-1 Tab*) 200 mg PO DAILY [facility] Last Admin: 11/10/17 12:27 Dose: Not Given Thiamine HCl (Vitamin B1 Iv*) 100 mg IV DAILY [facility] Topiramate (Topamax(*)) 50 mg PO BID [facility] Last Admin: 11/10/17 11:45 Dose: Not Given Vital Signs - 8 hr 11/10/17 11/10/17 11/10/17 06:00 08:00 08:21 Temperature 97.6 F Pulse Rate 80 108 Respiratory 22 40 Rate Blood Pressure 116/71 142/95 (mmHg) O2 Sat by Pulse 97 97 Oximetry 11/10/17 11/10/17 11/10/17 09:29 10:15 10:23 Temperature 97.6 F Pulse Rate 102 Respiratory 24 38 Rate Blood Pressure 143/80 (mmHg) O2 Sat by Pulse 97 96 Oximetry 11/10/17 11/10/17 11:44 11:49 Temperature 98.6 F Pulse Rate 96 Respiratory 16 36 Rate Blood Pressure 113/80 (mmHg) O2 Sat by Pulse 96 Oximetry Oxygen Devices in Use Now: None Appearance: Sleeping, in her L side in bed. Looks comfortable. Extremities: No Edema, No Clubbing, Cyanosis, - Skin: No Nodules or Sclerosis, - - palmar erythema, spider angiomata on chest. Neurological: - - two daughters present all AM, report at times patien answered appropriately. Result Diagrams: 11/10/17 05:51 11/10/17 05:51 Additional Lab and Data: Lab Results 11/09/17 11/09/17 11/09/17 Range/Units 17:03 17:03 17:03 WBC 7.7 (3.5-10.8) 10^3/ul RBC 4.05 (4.0-5.4) 10^6/ul Hgb 13.0 (12.0-16.0) g/dl Hct 39 (35-47) % MCV 95 (80-97) fL MCH 32 H (27-31) pg MCHC 34 (31-36) g/dl RDW 15 (10.5-15) % Plt Count 69 L (150-450) 10^3/ul MPV 11 H (7.4-10.4) um3 Neut % (Auto) 75.3 (38-83) % Lymph % (Auto) 10.9 L (25-47) % [place] % (Auto) 12.8 H (1-9) % Eos % (Auto) 0.4 (0-6) % Baso % (Auto) 0.6 (0-2) % Absolute Neuts (auto) 5.8 (1.5-7.7) 10^3/ul Absolute Lymphs (auto) 0.8 L (1.0-4.8) 10^3/ul Absolute Monos (auto) 1.0 H (0-0.8) 10^3/ul Absolute Eos (auto) 0 (0-0.6) 10^3/ul Absolute Basos (auto) 0 (0-0.2) 10^3/ul Absolute Nucleated RBC 0 10^3/ul Nucleated RBC % 0.2 ESR 19 (0-30) mm/Hr Hem Pathologist Commnt Pending INR (Anticoag Therapy) 4.53 H (0.77-1.02) Sodium 135 (133-145) mmol/L Potassium 3.9 (3.5-5.0) mmol/L Chloride 103 (101-111) mmol/L Carbon Dioxide 21 L (22-32) mmol/L Anion Gap 11 (2-11) mmol/L BUN 34 H (6-24) mg/dL Creatinine 1.13 H (0.51-0.95) mg/dL Est GFR ( Amer) 64.3 (>60) Est GFR (Non-Af Amer) 50.0 (>60) BUN/Creatinine Ratio 30.1 H (8-20) Glucose 115 H (70-100) mg/dL Lactic Acid (0.5-2.0) mmol/L Calcium 8.4 L (8.6-10.3) mg/dL Total Bilirubin 4.40 H (0.2-1.0) mg/dL AST 3833 H (13-39) U/L ALT 1823 H (7-52) U/L Alkaline Phosphatase 128 H (34-104) U/L Ammonia (16-53) mol/L Total Creatine Kinase 111 (10-223) U/L Troponin I 0.04 H* (<0.04) ng/mL C-Reactive Protein 92.50 H (< 5.00) mg/L Total Protein 6.1 L (6.4-8.9) g/dL Albumin 3.1 L (3.2-5.2) g/dL Globulin 3.0 (2-4) g/dL Albumin/Globulin Ratio 1.0 (1-3) Lipase 71 (11.0-82.0) U/L Salicylates < 2.50 (<30) mg/dL Acetaminophen < 15 mcg/mL 11/09/17 11/09/17 Range/Units 17:03 18:11 WBC (3.5-10.8) 10^3/ul RBC (4.0-5.4) 10^6/ul Hgb (12.0-16.0) g/dl Hct (35-47) % MCV (80-97) fL MCH (27-31) pg MCHC (31-36) g/dl RDW (10.5-15) % Plt Count (150-450) 10^3/ul MPV (7.4-10.4) um3 Neut % (Auto) (38-83) % Lymph % (Auto) (25-47) % [place] % (Auto) (1-9) % Eos % (Auto) (0-6) % Baso % (Auto) (0-2) % Absolute Neuts (auto) (1.5-7.7) 10^3/ul Absolute Lymphs (auto) (1.0-4.8) 10^3/ul Absolute Monos (auto) (0-0.8) 10^3/ul Absolute Eos (auto) (0-0.6) 10^3/ul Absolute Basos (auto) (0-0.2) 10^3/ul Absolute Nucleated RBC 10^3/ul Nucleated RBC % ESR (0-30) mm/Hr Hem Pathologist Commnt INR (Anticoag Therapy) (0.77-1.02) Sodium (133-145) mmol/L Potassium (3.5-5.0) mmol/L Chloride (101-111) mmol/L Carbon Dioxide (22-32) mmol/L Anion Gap (2-11) mmol/L BUN (6-24) mg/dL Creatinine (0.51-0.95) mg/dL Est GFR ( Amer) (>60) Est GFR (Non-Af Amer) (>60) BUN/Creatinine Ratio (8-20) Glucose (70-100) mg/dL Lactic Acid 3.1 H* (0.5-2.0) mmol/L Calcium (8.6-10.3) mg/dL Total Bilirubin (0.2-1.0) mg/dL AST (13-39) U/L ALT (7-52) U/L Alkaline Phosphatase (34-104) U/L Ammonia 141 H (16-53) mol/L Total Creatine Kinase (10-223) U/L Troponin I (<0.04) ng/mL C-Reactive Protein (< 5.00) mg/L Total Protein (6.4-8.9) g/dL Albumin (3.2-5.2) g/dL Globulin (2-4) g/dL Albumin/Globulin Ratio (1-3) Lipase (11.0-82.0) U/L Salicylates (<30) mg/dL Acetaminophen mcg/mL Assess/Plan/Problems-Billing Assessment: - Patient Problems (1) Hepatic encephalopathy Current Visit: Yes Status: Acute Code(s): K72.90 - HEPATIC FAILURE, UNSPECIFIED WITHOUT COMA SNOMED Code(s): 44796080 Comment: Exacerbated by other medical problems. Lactulose 30 ml q 4 hr, repeat ammonia level 11/10. Note marked alcohoic hepatitis. Acute hep panel all neg. She had diarrhea the first night aned I have reduced lactulose to 30 ml tid. Rifaximin started, first dose about 1 PM 11/10. (2) Chronic alcoholism Current Visit: Yes Status: Acute Code(s): F10.20 - ALCOHOL DEPENDENCE, UNCOMPLICATED SNOMED Code(s): 2812856 Comment: She will eventually need SW consulatation. (3) Tobacco abuse Current Visit: Yes Status: Acute Code(s): Z72.0 - TOBACCO USE SNOMED Code( s): 336573208 Comment: She will need counselling when she is more alert. (4) Pneumonia Current Visit: Yes Status: Acute Code(s): J18.9 - PNEUMONIA, UNSPECIFIED ORGANISM SNOMED Code(s): 363732288 Comment: Likely aspirated her vomitus at home. Continue pip/jonny. (5) Dehydration Current Visit: Yes Status: Acute Code(s): E86.0 - DEHYDRATION SNOMED Code( s): 21563226 Comment: IVF. Follow BMP, I&O's. (6) Coagulopathy Current Visit: Yes Status: Acute Comment: Hx elevated homocysteine level, PE. Hold antioagulant as INR >4, severe liver dysfunction.
[2017-11-10] MEDS: Thiamine IV* 100 MG/ML 2 ML VIAL IV SCH (16:22)
[2017-11-11] MEDS: Piperacillin/Tazobac ADVAN(*) 3.375 GM in NS 0.9% 100 ML* 100 ML IVPB SCH ×3 (00:26→17:27)
[2017-11-11] MEDS: Lactulose 300 ML for PR* 10 GM/15 ML BTL PR SCH ×6 (00:31→20:48)
[2017-11-11 06:06] LABS: ABS Basophils 0 10^3/ul (0-0.2); ABS Eosinophils 0 10^3/ul (0-0.6); ABS Lymphocytes 1.1 10^3/ul (1.0-4.8); ABS Monocytes 1.1 10^3/ul (0-0.8); ABS Neutrophils 5.8 10^3/ul (1.5-7.7); ABS Nucleated RBC 0 10^3/ul; Eosinophil % 0.5 % (0-6); Hematocrit 34 % (35-47); Hemoglobin 11.5 g/dl (12.0-16.0); Lymphocyte % 13.3 % (25-47); Mean Corpuscular HGB Conc 34 g/dl (31-36); Mean Corpuscular Hemoglobin 32 pg (27-31); Mean Corpuscular Volume 95 fL (80-97); Mean Platelet Volume 11 um3 (7.4-10.4); Nucleated Red Blood Cells % 0.1; Platelet Count 147 10^3/ul (150-450); Red Cell Distribution Width 15 % (10.5-15)
[2017-11-11 06:18] LABS: INR 1.53 (0.77-1.02)
[2017-11-11] MEDS: Potassium Chlor TAB* 20 MEQ TAB.ER PO SCH ×5 (07:23→20:50)
--- NOTE | 2017-11-11 09:13 | PN ---
Subjective Date of Service: 11/11/17 Interval History: Pt had been awake and appropriate during the night. now mostly sleeping during the visit. when awaken appropriate and denies any complaints. Family History: Unchanged from Admission - Breast ca in [place], leukemia in [place], HTN Social History: Unchanged from Admission - SDM is her daughter Janine Bullock. Smokes. Heavy drinker. Lives alone. Past Medical History: Unchanged from Admission - cervical laminectomy, bipolar disorder, seizure disorder, PE with elevated homocysteine level, HTN, migraines. Objective Active Medications: Acetaminophen (Tylenol Tab*) 650 mg PO Q4H PRN PRN Reason: FEVER Last Admin: 11/09/17 19:51 Dose: 650 mg Chlordiazepoxide (Librium Cap*) 10 mg PO TID [facility] Folic Acid (Folvite Tab*) 1 mg PO DAILY [facility] Last Admin: 11/10/17 12:27 Dose: Not Given Piperacillin Sod/Tazobactam (Sod 3.375 gm/ Sodium Chloride) 100 mls @ 25 mls/ hr IVPB Q8H [facility] Last Admin: 11/11/17 00:26 Dose: 25 mls/hr Potassium Chloride (Potassium Chloride 10 Meq/50 Ml Ivpremix*) 10 meq in 50 mls @ 50 mls/hr IV Q1H [facility] Stop: 11/11/17 09:44 Lactulose (Lactulose*) 30 ml PO BID [facility] Last Admin: 11/10/17 20:49 Dose: 30 ml Lactulose (Lactulose 300 Ml For Pr*) 200 gm GA Q4H [facility] Last Admin: 11/11/17 08:12 Dose: Not Given Multivitamins/Minerals (Theragran/Minerals Tab*) 1 tab PO DAILY [facility] Last Admin: 11/10/17 12:27 Dose: Not Given Oseltamivir Phosphate (Tamiflu Cap*) 75 mg PO BID [facility] Stop: 11/14/17 09:01 Last Admin: 11/10/17 20:48 Dose: 75 mg Potassium Chloride (Klor Con Er Tab*) 20 meq PO TID [facility] Last Admin: 11/10/17 20:50 Dose: 20 meq Potassium Chloride (Klor Con Er Tab*) 40 meq PO Q4H [facility] Stop: 11/11/17 11:01 Last Admin: 11/11/17 07:23 Dose: 40 meq Rifaximin (Xifaxan*) 550 mg PO BID [facility] Last Admin: 11/10/17 20:58 Dose: Not Given Thiamine HCl (Vitamin B-1 Tab*) 100 mg PO DAILY [facility] Last Admin: 11/10/17 12:27 Dose: Not Given Topiramate (Topamax(*)) 50 mg PO BID [facility] Last Admin: 11/10/17 20:48 Dose: 50 mg Warfarin Sodium (Coumadin Tab(*)) 2 mg PO DAILY@1700 [facility] PRN Reason: Protocol Vital Signs - 8 hr 11/11/17 11/11/17 11/11/17 02:06 02:15 04:05 Temperature 98.5 F 98.7 F Pulse Rate 144 92 86 Respiratory 20 24 Rate Blood Pressure 107/68 132/85 (mmHg) O2 Sat by Pulse 98 96 Oximetry 11/11/17 06:17 Temperature Pulse Rate Respiratory 16 Rate Blood Pressure (mmHg) O2 Sat by Pulse Oximetry Oxygen Devices in Use Now: None Appearance: 57 yo F in nAD, AAOx2 Eyes: PERRLA, - - sclera icteric Ears/Nose/Mouth/Throat: NL Teeth, Lips, Gums, Mucous Membranes Moist Neck: NL Appearance and Movements; NL JVP, Trachea Midline Respiratory: Symmetrical Chest Expansion and Respiratory Effort, - - coarse breath sounds b/l mid lungs Cardiovascular: NL Sounds; No Murmurs; No JVD, RRR Abdominal: NL Sounds; No Tenderness; No Distention Lymphatic: No Cervical Adenopathy Extremities: No Edema, No Clubbing, Cyanosis Skin: No Rash or Ulcers, No Nodules or Sclerosis Neurological: Alert and Oriented x 3, NL Muscle Strength and Tone Result Diagrams: 11/11/17 05:54 11/11/17 05:54 Additional Lab and Data: Lab Results 11/09/17 11/09/17 11/09/17 Range/Units 17:03 17:03 17:03 WBC 7.7 (3.5-10.8) 10^3/ul RBC 4.05 (4.0-5.4) 10^6/ul Hgb 13.0 (12.0-16.0) g/dl Hct 39 (35-47) % MCV 95 (80-97) fL MCH 32 H (27-31) pg MCHC 34 (31-36) g/dl RDW 15 (10.5-15) % Plt Count 69 L (150-450) 10^3/ul MPV 11 H (7.4-10.4) um3 Neut % (Auto) 75.3 (38-83) % Lymph % (Auto) 10.9 L (25-47) % [place] % (Auto) 12.8 H (1-9) % Eos % (Auto) 0.4 (0-6) % Baso % (Auto) 0.6 (0-2) % Absolute Neuts (auto) 5.8 (1.5-7.7) 10^3/ul Absolute Lymphs (auto) 0.8 L (1.0-4.8) 10^3/ul Absolute Monos (auto) 1.0 H (0-0.8) 10^3/ul Absolute Eos (auto) 0 (0-0.6) 10^3/ul Absolute Basos (auto) 0 (0-0.2) 10^3/ul Absolute Nucleated RBC 0 10^3/ul Nucleated RBC % 0.2 ESR 19 (0-30) mm/Hr Hem Pathologist Commnt Pending INR (Anticoag Therapy) 4.53 H (0.77-1.02) Sodium 135 (133-145) mmol/L Potassium 3.9 (3.5-5.0) mmol/L Chloride 103 (101-111) mmol/L Carbon Dioxide 21 L (22-32) mmol/L Anion Gap 11 (2-11) mmol/L BUN 34 H (6-24) mg/dL Creatinine 1.13 H (0.51-0.95) mg/dL Est GFR ( Amer) 64.3 (>60) Est GFR (Non-Af Amer) 50.0 (>60) BUN/Creatinine Ratio 30.1 H (8-20) Glucose 115 H (70-100) mg/dL Lactic Acid (0.5-2.0) mmol/L Calcium 8.4 L (8.6-10.3) mg/dL Total Bilirubin 4.40 H (0.2-1.0) mg/dL AST 3833 H (13-39) U/L ALT 1823 H (7-52) U/L Alkaline Phosphatase 128 H (34-104) U/L Ammonia (16-53) mol/L Total Creatine Kinase 111 (10-223) U/L Troponin I 0.04 H* (<0.04) ng/mL C-Reactive Protein 92.50 H (< 5.00) mg/L Total Protein 6.1 L (6.4-8.9) g/dL Albumin 3.1 L (3.2-5.2) g/dL Globulin 3.0 (2-4) g/dL Albumin/Globulin Ratio 1.0 (1-3) Lipase 71 (11.0-82.0) U/L Salicylates < 2.50 (<30) mg/dL Acetaminophen < 15 mcg/mL 11/09/17 11/09/17 Range/Units 17:03 18:11 WBC (3.5-10.8) 10^3/ul RBC (4.0-5.4) 10^6/ul Hgb (12.0-16.0) g/dl Hct (35-47) % MCV (80-97) fL MCH (27-31) pg MCHC (31-36) g/dl RDW (10.5-15) % Plt Count (150-450) 10^3/ul MPV (7.4-10.4) um3 Neut % (Auto) (38-83) % Lymph % (Auto) (25-47) % [place] % (Auto) (1-9) % Eos % (Auto) (0-6) % Baso % (Auto) (0-2) % Absolute Neuts (auto) (1.5-7.7) 10^3/ul Absolute Lymphs (auto) (1.0-4.8) 10^3/ul Absolute Monos (auto) (0-0.8) 10^3/ul Absolute Eos (auto) (0-0.6) 10^3/ul Absolute Basos (auto) (0-0.2) 10^3/ul Absolute Nucleated RBC 10^3/ul Nucleated RBC % ESR (0-30) mm/Hr Hem Pathologist Commnt INR (Anticoag Therapy) (0.77-1.02) Sodium (133-145) mmol/L Potassium (3.5-5.0) mmol/L Chloride (101-111) mmol/L Carbon Dioxide (22-32) mmol/L Anion Gap (2-11) mmol/L BUN (6-24) mg/dL Creatinine (0.51-0.95) mg/dL Est GFR ( Amer) (>60) Est GFR (Non-Af Amer) (>60) BUN/Creatinine Ratio (8-20) Glucose (70-100) mg/dL Lactic Acid 3.1 H* (0.5-2.0) mmol/L Calcium (8.6-10.3) mg/dL Total Bilirubin (0.2-1.0) mg/dL AST (13-39) U/L ALT (7-52) U/L Alkaline Phosphatase (34-104) U/L Ammonia 141 H (16-53) mol/L Total Creatine Kinase (10-223) U/L Troponin I (<0.04) ng/mL C-Reactive Protein (< 5.00) mg/L Total Protein (6.4-8.9) g/dL Albumin (3.2-5.2) g/dL Globulin (2-4) g/dL Albumin/Globulin Ratio (1-3) Lipase (11.0-82.0) U/L Salicylates (<30) mg/dL Acetaminophen mcg/mL Assess/Plan/Problems-Billing Assessment: 57 yo F with h/o alcoholism presents with ETOH withdrawal and delirium as well as hepatic encephalopathy following influenza dx on 11/04/17 - Patient Problems (1) Hepatic encephalopathy Comment: Exacerbated by other medical problems. Lactulose 30 ml q 4 hr, repeat ammonia level improved. Note marked alcoholic hepatitis. Acute hep panel all neg. cont lactulose 30 ml tid. Rifaximin started on 11/10. (2) Chronic alcoholism Comment: SW consulted (3) Coagulopathy Comment: Hx elevated homocysteine level, PE. Hold antioagulant Xarelto due to contraindication in severe liver dysfunction. starting coumadin on 11/11/17, Daily INR (4) Tobacco abuse Comment: She will need counselling in the future (5) Pneumonia Comment: Likely aspirated her vomitus at home. Continue pip/jonny. (6) Dehydration Comment: euvolemic. stop IVF (7) DVT prophylaxis Comment: INR down to 1.7, will start Coumadin today and bridge with Lovenox (8) Hypokalemia Comment: replacing IV and PO (9) Influenza A Comment: cont Tamiflu Status and Disposition: inpatient
[2017-11-11] MEDS: KCL 10 MEQ/50 ML IVPREMIX* 10 MEQ/50 ML BAG IV SCH ×2 (09:15→11:42)
[2017-11-11] MEDS: chlordiazePOXIDE CAP* 25 MG PO SCH ×2 (09:16→11:56)
[2017-11-11] MEDS: Topiramate TAB(*) 25 MG PO SCH ×2 (09:16→20:51)
[2017-11-11] MEDS: Folic Acid TAB* 1 MG PO SCH (09:16)
[2017-11-11] MEDS: Oseltamivir CAP* 75 MG CAP PO SCH ×2 (09:16→20:50)
[2017-11-11] MEDS: Multivitamins/Minerals TAB PO SCH (09:16)
[2017-11-11] MEDS: Thiamine TAB* 100 MG TAB PO SCH ×2 (09:17→09:18)
[2017-11-11] MEDS: Thiamine IV* 100 MG/ML 2 ML VIAL IV SCH (09:17)
[2017-11-11] MEDS: Enoxaparin(*) 60 MG/0.6 ML SYR SUBCUT SCH ×2 (11:11→20:51)
[2017-11-11] MEDS: RiFAXimin* 550 MG TAB PO SCH ×2 (11:20→20:51)
[2017-11-11] MEDS: chlordiazePOXIDE CAP* 10 MG PO SCH ×2 (12:35→20:49)
[2017-11-11] MEDS: guaiFENesin LIQ* 100 MG/5 ML UDC PO PRN ×3 (12:35→20:52)
[2017-11-11] MEDS: Acetaminophen TAB* 325 MG PO PRN (12:38)
[2017-11-11] MEDS: Warfarin TAB(*) 2 MG PO SCH (17:27)
[2017-11-11] MEDS: Nystatin TOP POWDER* 15 GM BTL TOPICAL SCH (20:49)
[2017-11-12] MEDS: Piperacillin/Tazobac ADVAN(*) 3.375 GM in NS 0.9% 100 ML* 100 ML IVPB SCH ×2 (01:03→08:50)
[2017-11-12] MEDS: Lactulose 300 ML for PR* 10 GM/15 ML BTL PR SCH ×5 (01:06→15:35)
[2017-11-12] MEDS: guaiFENesin LIQ* 100 MG/5 ML UDC PO PRN ×4 (01:37→17:24)
[2017-11-12 05:39] LABS: ABS Basophils 0.1 10^3/ul (0-0.2); ABS Eosinophils 0.1 10^3/ul (0-0.6); ABS Lymphocytes 1.4 10^3/ul (1.0-4.8); ABS Monocytes 1.5 10^3/ul (0-0.8); ABS Neutrophils 5.9 10^3/ul (1.5-7.7); ABS Nucleated RBC 0 10^3/ul; Eosinophil % 1.1 % (0-6); Hematocrit 33 % (35-47); Hemoglobin 11.2 g/dl (12.0-16.0); Lymphocyte % 16.2 % (25-47); Mean Corpuscular HGB Conc 34 g/dl (31-36); Mean Corpuscular Hemoglobin 32 pg (27-31); Mean Corpuscular Volume 95 fL (80-97); Mean Platelet Volume 10 um3 (7.4-10.4); Nucleated Red Blood Cells % 0.1; Platelet Count 169 10^3/ul (150-450); Red Blood Count 3.52 10^6/ul (4.0-5.4); Red Cell Distribution Width 15 % (10.5-15)
[2017-11-12 05:52] LABS: INR 1.32 (0.77-1.02)
[2017-11-12] MEDS: chlordiazePOXIDE CAP* 10 MG PO SCH ×3 (08:50→20:43)
[2017-11-12] MEDS: Thiamine TAB* 100 MG TAB PO SCH (08:51)
[2017-11-12] MEDS: Folic Acid TAB* 1 MG PO SCH (08:51)
[2017-11-12] MEDS: Multivitamins/Minerals TAB PO SCH (08:51)
[2017-11-12] MEDS: Oseltamivir CAP* 75 MG CAP PO SCH ×2 (08:51→20:43)
[2017-11-12] MEDS: Topiramate TAB(*) 25 MG PO SCH ×2 (08:51→20:44)
[2017-11-12] MEDS: Potassium Chlor TAB* 20 MEQ TAB.ER PO SCH ×3 (08:51→20:44)
[2017-11-12] MEDS: RiFAXimin* 550 MG TAB PO SCH ×2 (08:51→20:43)
[2017-11-12] MEDS: Nystatin TOP POWDER* 15 GM BTL TOPICAL SCH ×3 (08:52→21:19)
[2017-11-12] MEDS: Enoxaparin(*) 60 MG/0.6 ML SYR SUBCUT SCH ×2 (11:33→20:44)
[2017-11-12] MEDS ORDERED: Piperacillin/Tazobactam 13.5 GM IV 24 hour continuous infusion IVPB SCH ×2 (16:00)
[2017-11-12] MEDS: Warfarin TAB(*) 2 MG PO SCH (17:16)
--- NOTE | 2017-11-12 17:55 | PN ---
Subjective Date of Service: 11/12/17 Interval History: pt feels much better.PT/OT eval went well. Family History: Unchanged from Admission - Breast ca in [place], leukemia in [place], HTN Social History: Unchanged from Admission - SDM is her daughter Janine Bullock. Smokes. Heavy drinker. Lives alone. Past Medical History: Unchanged from Admission - cervical laminectomy, bipolar disorder, seizure disorder, PE with elevated homocysteine level, HTN, migraines. Objective Active Medications: Acetaminophen (Tylenol Tab*) 650 mg PO Q4H PRN PRN Reason: FEVER Last Admin: 11/11/17 12:38 Dose: 650 mg Chlordiazepoxide (Librium Cap*) 10 mg PO TID [facility] Last Admin: 11/12/17 13:43 Dose: 10 mg Enoxaparin Sodium (Lovenox(*)) 60 mg SUBCUT Q12H [facility] Last Admin: 11/12/17 11:33 Dose: 60 mg Folic Acid (Folvite Tab*) 1 mg PO DAILY [facility] Last Admin: 11/12/17 08:51 Dose: 1 mg Guaifenesin (Robitussin*) 5 ml PO Q4H PRN PRN Reason: COUGH Last Admin: 11/12/17 17:24 Dose: 5 ml Piperacillin Sod/Tazobactam (Sod 13.5 gm/ Sodium Chloride) 500 mls @ 20.833 mls /hr IVPB Q24H [facility] Last Admin: 11/12/17 17:16 Dose: 20.833 mls/hr Lactulose (Lactulose*) 30 ml PO BID [facility] Last Admin: 11/12/17 08:52 Dose: 30 ml Multivitamins/Minerals (Theragran/Minerals Tab*) 1 tab PO DAILY [facility] Last Admin: 11/12/17 08:51 Dose: 1 tab Nystatin (Nystatin Top Powder*) 1 applic TOPICAL BID [facility] Last Admin: 11/12/17 08:52 Dose: 1 applic Oseltamivir Phosphate (Tamiflu Cap*) 75 mg PO BID [facility] Stop: 11/14/17 09:01 Last Admin: 11/12/17 08:51 Dose: 75 mg Potassium Chloride (Klor Con Er Tab*) 20 meq PO TID [facility] Last Admin: 11/12/17 13:43 Dose: 20 meq Rifaximin (Xifaxan*) 550 mg PO BID [facility] Last Admin: 11/12/17 08:51 Dose: 550 mg Thiamine HCl (Vitamin B-1 Tab*) 100 mg PO DAILY [facility] Last Admin: 11/12/17 08:51 Dose: 100 mg Topiramate (Topamax(*)) 50 mg PO BID [facility] Last Admin: 11/12/17 08:51 Dose: 50 mg Warfarin Sodium (Coumadin Tab(*)) 2 mg PO DAILY@1700 [facility] PRN Reason: Protocol Last Admin: 11/12/17 17:16 Dose: 2 mg Vital Signs - 8 hr 11/12/17 11/12/17 11/12/17 11:24 12:29 13:43 Temperature 98.5 F Pulse Rate 87 Respiratory 16 20 18 Rate Blood Pressure 126/86 (mmHg) O2 Sat by Pulse 100 Oximetry 11/12/17 15:35 Temperature Pulse Rate Respiratory 18 Rate Blood Pressure (mmHg) O2 Sat by Pulse Oximetry Oxygen Devices in Use Now: None Appearance: 57 yo F in nAD, AAOx3 Eyes: PERRLA, - - sleral icterus b/l Ears/Nose/Mouth/Throat: NL Teeth, Lips, Gums Neck: NL Appearance and Movements; NL JVP, Trachea Midline Respiratory: Symmetrical Chest Expansion and Respiratory Effort, Clear to Auscultation Cardiovascular: NL Sounds; No Murmurs; No JVD, RRR Abdominal: NL Sounds; No Tenderness; No Distention Lymphatic: No Cervical Adenopathy Extremities: No Edema, No Clubbing, Cyanosis Skin: No Rash or Ulcers, No Nodules or Sclerosis Neurological: Alert and Oriented x 3, NL Muscle Strength and Tone Result Diagrams: 11/12/17 05:29 11/12/17 05:29 Additional Lab and Data: Lab Results 11/09/17 11/09/17 11/09/17 Range/Units 17:03 17:03 17:03 WBC 7.7 (3.5-10.8) 10^3/ul RBC 4.05 (4.0-5.4) 10^6/ul Hgb 13.0 (12.0-16.0) g/dl Hct 39 (35-47) % MCV 95 (80-97) fL MCH 32 H (27-31) pg MCHC 34 (31-36) g/dl RDW 15 (10.5-15) % Plt Count 69 L (150-450) 10^3/ul MPV 11 H (7.4-10.4) um3 Neut % (Auto) 75.3 (38-83) % Lymph % (Auto) 10.9 L (25-47) % [place] % (Auto) 12.8 H (1-9) % Eos % (Auto) 0.4 (0-6) % Baso % (Auto) 0.6 (0-2) % Absolute Neuts (auto) 5.8 (1.5-7.7) 10^3/ul Absolute Lymphs (auto) 0.8 L (1.0-4.8) 10^3/ul Absolute Monos (auto) 1.0 H (0-0.8) 10^3/ul Absolute Eos (auto) 0 (0-0.6) 10^3/ul Absolute Basos (auto) 0 (0-0.2) 10^3/ul Absolute Nucleated RBC 0 10^3/ul Nucleated RBC % 0.2 ESR 19 (0-30) mm/Hr Hem Pathologist Commnt Pending INR (Anticoag Therapy) 4.53 H (0.77-1.02) Sodium 135 (133-145) mmol/L Potassium 3.9 (3.5-5.0) mmol/L Chloride 103 (101-111) mmol/L Carbon Dioxide 21 L (22-32) mmol/L Anion Gap 11 (2-11) mmol/L BUN 34 H (6-24) mg/dL Creatinine 1.13 H (0.51-0.95) mg/dL Est GFR ( Amer) 64.3 (>60) Est GFR (Non-Af Amer) 50.0 (>60) BUN/Creatinine Ratio 30.1 H (8-20) Glucose 115 H (70-100) mg/dL Lactic Acid (0.5-2.0) mmol/L Calcium 8.4 L (8.6-10.3) mg/dL Total Bilirubin 4.40 H (0.2-1.0) mg/dL AST 3833 H (13-39) U/L ALT 1823 H (7-52) U/L Alkaline Phosphatase 128 H (34-104) U/L Ammonia (16-53) mol/L Total Creatine Kinase 111 (10-223) U/L Troponin I 0.04 H* (<0.04) ng/mL C-Reactive Protein 92.50 H (< 5.00) mg/L Total Protein 6.1 L (6.4-8.9) g/dL Albumin 3.1 L (3.2-5.2) g/dL Globulin 3.0 (2-4) g/dL Albumin/Globulin Ratio 1.0 (1-3) Lipase 71 (11.0-82.0) U/L Salicylates < 2.50 (<30) mg/dL Acetaminophen < 15 mcg/mL 11/09/17 11/09/17 Range/Units 17:03 18:11 WBC (3.5-10.8) 10^3/ul RBC (4.0-5.4) 10^6/ul Hgb (12.0-16.0) g/dl Hct (35-47) % MCV (80-97) fL MCH (27-31) pg MCHC (31-36) g/dl RDW (10.5-15) % Plt Count (150-450) 10^3/ul MPV (7.4-10.4) um3 Neut % (Auto) (38-83) % Lymph % (Auto) (25-47) % [place] % (Auto) (1-9) % Eos % (Auto) (0-6) % Baso % (Auto) (0-2) % Absolute Neuts (auto) (1.5-7.7) 10^3/ul Absolute Lymphs (auto) (1.0-4.8) 10^3/ul Absolute Monos (auto) (0-0.8) 10^3/ul Absolute Eos (auto) (0-0.6) 10^3/ul Absolute Basos (auto) (0-0.2) 10^3/ul Absolute Nucleated RBC 10^3/ul Nucleated RBC % ESR (0-30) mm/Hr Hem Pathologist Commnt INR (Anticoag Therapy) (0.77-1.02) Sodium (133-145) mmol/L Potassium (3.5-5.0) mmol/L Chloride (101-111) mmol/L Carbon Dioxide (22-32) mmol/L Anion Gap (2-11) mmol/L BUN (6-24) mg/dL Creatinine (0.51-0.95) mg/dL Est GFR ( Amer) (>60) Est GFR (Non-Af Amer) (>60) BUN/Creatinine Ratio (8-20) Glucose (70-100) mg/dL Lactic Acid 3.1 H* (0.5-2.0) mmol/L Calcium (8.6-10.3) mg/dL Total Bilirubin (0.2-1.0) mg/dL AST (13-39) U/L ALT (7-52) U/L Alkaline Phosphatase (34-104) U/L Ammonia 141 H (16-53) mol/L Total Creatine Kinase (10-223) U/L Troponin I (<0.04) ng/mL C-Reactive Protein (< 5.00) mg/L Total Protein (6.4-8.9) g/dL Albumin (3.2-5.2) g/dL Globulin (2-4) g/dL Albumin/Globulin Ratio (1-3) Lipase (11.0-82.0) U/L Salicylates (<30) mg/dL Acetaminophen mcg/mL Assess/Plan/Problems-Billing Assessment: 57 yo F with h/o alcoholism presents with ETOH withdrawal and delirium as well as hepatic encephalopathy following influenza dx on 11/04/17 - Patient Problems (1) Hepatic encephalopathy Comment: Exacerbated by other medical problems. Note marked alcoholic hepatitis. Acute hep panel all neg. cont lactulose 30 ml tid. Rifaximin started on 11/10. (2) Chronic alcoholism Comment: SW consulted (3) Coagulopathy Comment: Hx elevated homocysteine level, PE. Hold antioagulant Xarelto due to contraindication in severe liver dysfunction. started coumadin on 11/11/17, Daily INR. Bridging with lovenox. (4) Tobacco abuse Comment: counseled (5) Pneumonia Comment: Likely aspirated her vomitus at home. Continue pip/jonny. (6) Dehydration Comment: euvolemic. (7) DVT prophylaxis Comment: Con Coumadin and Lovenox bridge (8) Hypokalemia Comment: replacing IV and PO (9) Influenza A Comment: cont Tamiflu Status and Disposition: inpatient
[2017-11-13] MEDS: guaiFENesin LIQ* 100 MG/5 ML UDC PO PRN (02:20)
[2017-11-13 06:44] LABS: EGFR Non-African American 96.3 (>60)
[2017-11-13 06:52] LABS: INR 1.16 (0.77-1.02)
[2017-11-13] MEDS: Thiamine TAB* 100 MG TAB PO SCH (09:35)
[2017-11-13] MEDS: Enoxaparin(*) 60 MG/0.6 ML SYR SUBCUT SCH (09:35)
[2017-11-13] MEDS: Potassium Chlor TAB* 20 MEQ TAB.ER PO SCH ×2 (09:35→14:15)
[2017-11-13] MEDS: Folic Acid TAB* 1 MG PO SCH (09:36)
[2017-11-13] MEDS: chlordiazePOXIDE CAP* 10 MG PO SCH (09:36)
[2017-11-13] MEDS: Multivitamins/Minerals TAB PO SCH (09:37)
[2017-11-13] MEDS: Nystatin TOP POWDER* 15 GM BTL TOPICAL SCH (09:37)
[2017-11-13] MEDS: Topiramate TAB(*) 25 MG PO SCH (09:38)
[2017-11-13] MEDS: RiFAXimin* 550 MG TAB PO SCH (09:59)
[2017-11-13] MEDS: Oseltamivir CAP* 75 MG CAP PO SCH (09:59)
[2017-11-13 14:09] VITALS: BP 147/80
[2017-11-13] MEDS ORDERED: Warfarin TAB(*) 4 MG PO SCH (17:00)
--- NOTE | 2017-11-14 04:07 | DS ---
CC: Dr. Bell; Dr. Monique * DISCHARGE SUMMARY: DATE OF ADMISSION: 11/09/17 DATE OF DISCHARGE: 11/13/17 PRIMARY CARE PROVIDER: Dr. Bell. DISCHARGE DIAGNOSES: 1. Hepatic encephalopathy. 2. Acute alcohol withdrawal and delirium tremens at admission. 3. Aspiration pneumonia. 4. Acute influenza A. 5. Hypokalemia. 6. Dehydration at admission. 7. Liver failure. SECONDARY DIAGNOSES: 1. History of hypocoagulable state with history of pulmonary embolism. The patient was on Xarelto, now is being transitioned to Coumadin. 2. History of bipolar disorder. 3. History of seizure disorder. 4. History of cervical laminectomy. 5. Elevated homocysteine level. 6. Hypertension. 7. Migraines. MEDICATIONS: At discharge include: 1. Coumadin 4 mg daily. 2. Lovenox 60 mg every 12 hours until the patient's INR is above 2. 3. Topamax 50 mg b.i.d. 4. Vitamin B1 100 mg daily. 5. Rifaximin 550 mg b.i.d. 6. Potassium chloride 40 mEq daily for 10 days total. 7. Tamiflu 75 mg b.i.d. with last dose being on 11/14/17 in the evening. 8. Lactulose 30 mL b.i.d., to stop if the patient has more than 6 bowel movements a day. 9. Folic acid 1 mg daily. 10. Librium 5 mg 3 times a day first day, 5 mg twice for the second day, and then stop. LABORATORY DATA: During the hospital stay included: On 11/12/17, white blood cell count of 9.0, hemoglobin of 11.2, hematocrit of 33, and platelets of 169. On 11/13/17, sodium of 137, potassium 3.5, chloride of 112, carbon dioxide 17, BUN 8, creatinine 0.64. Liver function tests with a total bilirubin of 3.7, AST of 86, ALT of 393, alkaline phosphatase of 194. Ammonia of 82. Total protein of 6.0, albumin of 2.0. of 3.3. Acute hepatitis panel was negative for hepatitis A, B, and C. Salicylates and acetaminophen at admission were negative. Brain CT obtained at admission, impression: "No acute intracranial pathology." Portable chest x-ray at admission, impression: "Left middle and lower lobe consolidation. Recommend followup until resolution. There is still underlying pulmonary parenchymal pathology." HOSPITALIZATION COURSE: Yenny Bullock is a 57-year-old female with history of alcoholism, who presented to the hospital on 11/09/17, which was approximately 3 to 4 days after she was diagnosed with acute influenza A. The patient was found at home incoherent, naked from the waist down with evidence of vomiting and disheveled. The patient was treated with Ativan taper for acute delirium tremens. She was noted to have hepatic encephalopathy with ammonia level of 141 at admission. She was noted to have acute liver failure with total bilirubin peaking at 6.3 on 11/12/17. Transaminitis was likely due to acute alcoholic hepatitis. The patient also had history of using Xarelto for history of hypercoagulable state in the past and history of PE. Her INR was 4.5 at admission and her Xarelto was discontinued. The patient was admitted and treated with Tamiflu for influenza A. The patient also was noted to have likely aspiration pneumonia and treated with Zosyn for a total of 5 days. Treatment with Zosyn was discontinued by the time of discharge since the patient's lungs appeared to be clear on auscultation by the time of discharge. The patient's ammonia level continued to be elevated throughout her hospital stay. The patient's encephalopathy resolved. By the time of discharge, the patient's ammonia was over 80, but once again she had no evidence of encephalopathy. She did have problems with short-term memory which as per the patient's family was baseline. The patient underwent Physical Therapy, Occupational Therapy evaluation and deemed to be a good candidate for home VNS services, which are going to be provided by the time of discharge. The patient is advised strongly not to drink. Social Work saw the patient in consultation, recommended inpatient rehabilitation, for which the patient was given all the information required and she was going to be waiting admission at home. The patient's mother arrived from [place], who is going to be helping with the patient's care at home. Due to the patient's liver failure, her treatment with Xarelto was discussed with one of the Oncology attendings. It was recommended for the patient not to continue on Xarelto due to her liver failure and be switched to Coumadin. The patient was started on Coumadin 2 days prior to her discharge with INR continuing to be subtherapeutic at 1.16 on the day of discharge. Her Coumadin at that point was increased from 2 mg daily to 4 mg daily. Her next INR is due on 11/17/17 and VNS was going to be able to draw the lab work and send the report to Dr. Bell, to Dr. Monique to further facilitate the patient's treatment. The patient is for the time being bridged with Lovenox until her INR is therapeutic. PHYSICAL EXAMINATION AT THE TIME OF DISCHARGE: Blood pressure of 147/80, heart rate of 93 and regular, respiratory rate 16, oxygen saturation 100% on room air , temperature of 98.6. General: The patient is a very pleasant 57-year-old female, who is in no acute distress. Alert, awake, and oriented x3. HEENT: Head is atraumatic, normo-cephalic. Eyes: Pupils are equal, reactive to light and accommodation. Oropharynx clear. Mucosa moist. Neck: Supple. No JVD, no bruits bilaterally. Cardiovascular: Regular rate and rhythm. No murmur. Respiratory: Clear to auscultation bilaterally. Abdomen: Soft, nontender. Bowel sounds are present in all 4 quadrants. There is no ascites and no hepatomegaly present. Extremities: There is no edema. Pulses +2 bilaterally. There is no clubbing or cyanosis. On evaluation of the skin, the patient has jaundice present. The patient also has scleral icterus on evaluation of bilateral eyes. On neuro evaluation, speech clear. Cranial nerves II through XII are grossly intact. Motor strength is 5/5 bilaterally. The patient is being discharged home with recommendation to follow up with her primary care provider in approximately 4 to 7 days, with Dr. Monique in approximately 1 to 2 weeks. VNS services will be provided upon discharge. Please note that this is a short summary of the patient's hospitalization. Please refer to further medical records for details. TIME SPENT: Approximately 50 minutes were spent on the patient's discharge. [id number]/[facility] #: [id number] MTDD
== END 2017-11-13 14:25 | disposition home health service (06) | DRG 432 ==
LOC: ED 15:26 → MED 18:12
PROVIDERS: ADMIT Internal Medicine; ATTEND Internal Medicine
DX: K70.40 Alcoholic hepatic failure without coma (principal); J69.0 Pneumonitis due to inhalation of food and vomit; K70.10 Alcoholic hepatitis without ascites; F10.231 Alcohol dependence with withdrawal delirium; D68.9 Coagulation defect, unspecified; E86.0 Dehydration; F31.9 Bipolar disorder, unspecified; G40.909 Epilepsy, unspecified, not intractable, without status epilepticus; I10 Essential (primary) hypertension; G43.909 Migraine, unspecified, not intractable, without status migrainosus; J30.2 Other seasonal allergic rhinitis; F41.9 Anxiety disorder, unspecified; F17.210 Nicotine dependence, cigarettes, uncomplicated; R40.2412 Glasgow coma scale score 13-15, at arrival to emergency department; E87.6 Hypokalemia; J10.1 Influenza due to other identified influenza virus with other respiratory manifestations; Z79.01 Long term (current) use of anticoagulants; Z82.49 Family history of ischemic heart disease and other diseases of the circulatory system; Z80.3 Family history of malignant neoplasm of breast; Z80.6 Family history of leukemia; Z86.711 Personal history of pulmonary embolism; Z88.1 Allergy status to other antibiotic agents; Z88.8 Allergy status to other drugs, medicaments and biological substances; Z98.1 Arthrodesis status; Z98.51 Tubal ligation status
CPT/HCPCS: 36415; 70450; 71045; 80048; 80053; 80074; 80329; 81003; 81015; 82140; 82550; 83605; 83690; 84484; 85025; 85060; 85610; 85652; 86140; 87040; 93005; A9270-GY; G0480; J1630; J1650; J2060; J2543; J3411; J3480

== ENCOUNTER 2017-11-19 12:55 | Emergency (ER) | payer MEDICARE ==
[2017-11-19 15:10] LABS: Hematocrit 30 % (35-47); Hemoglobin 10.1 g/dl (12.0-16.0)
[2017-11-19 15:18] LABS: INR 1.13 (0.77-1.02)
[2017-11-19 16:05] VITALS: BP 131/74
--- NOTE | 2017-11-20 21:11 | ED ---
Hesham Hui Jennifer, scribed for West Clement MD on 11/19/17 at 1315 . Substance Abuse/Use - HPI Summary HPI Summary: The patient is a 57 year old female who accidentally took two times the amount of Warfarin that she was prescribed at 20:30 last night. She was originally prescribed 4mg, but her doctor increased the dosage to 8mg. However, the patient accidentally took four tablets, which was 16mg. Her daughter found out today, and the patients doctor recommended that they come to the ED. - History Of Current Complaint Chief Complaint: EDOverdose Stated Complaint: POSSIBLE OVERDOSE Time Seen by Provider: 11/19/17 13:04 Hx Obtained From: Patient, Family/Reservations Specialist - Daughter Hx Last Menstrual Period: 1 week ago Ingestion History: Type/Name Of Drug - Warfarin, Amount Ingested - 16 mg ACCIDENTALLY, Approximate Time Of Ingestion - Previous night Overdose Characteristics: Oral Timing Of Abuse: Binge Use Severity Initially: Mild Severity Currently: None Associated Signs And Symptoms: Negative - Allergies/Home Medications Allergies/Adverse Reactions: Allergies Allergy/AdvReac Type Severity Reaction Status Date / Time MS Azithromycin Allergy Intermediate Flushing Verified 11/07/16 10:16 [From Zithromax Z-[place]] MS Levofloxacin Allergy Intermediate Flushing Verified 11/07/16 10:16 [From Levaquin] MS Triamterene [Triamterene] Allergy Intermediate Blisters Verified 11/07/16 10: 16 MS Atenolol [Atenolol] Allergy ITCHY RASH Verified 11/07/16 10:16 MS Erythromycin Allergy Rash Verified 11/07/16 10:16 [Erythromycin] MS Gabapentin [Gabapentin] AdvReac Intermediate Nausea And Verified 11/07/16 10: 16 Vomiting PMH/Surg Hx/FS Hx/Imm Hx Endocrine/Hematology History: Reports: Hx Anticoagulant Therapy Denies: Hx Diabetes Cardiovascular History: Reports: Hx Hypertension Denies: Hx Pacemaker/ICD Respiratory History: Reports: Hx Pulmonary Embolism - 2005 TAKING XARELTO, Hx Seasonal Allergies Denies: Other Respiratory Problems/Disorders GI History: Denies: Other GI Disorders - denies History: Denies: Hx Renal Disease Musculoskeletal History: Reports: Other Musculoskeletal History - Neck Pain Sensory History: Reports: Hx Contacts or Glasses - READING GLASSES Denies: Hx Hearing Aid Opthamlomology History: Reports: Hx Contacts or Glasses - READING GLASSES Neurological History: Reports: Hx Headaches, Hx Seizures, Other Neuro Impairments/Disorders Psychiatric History: Reports: Hx Anxiety - CONTROL WITH MEDS, Hx Depression, Hx Bipolar Disorder Denies: Hx Panic Disorder - Cancer History Cancer Type, Location and Year: right breast lump removed (benign) - Surgical History Surgery Procedure, Year, and Place: 11/2007 C5-C6 ACDF WITH BONE FUSION AND PLATING, [facility] [place]. 04/2008 BILATERAL TUBAL LIGATION, [facility] [place]. 2010 SIGMOIDOSCOPY, [facility] [place]. 2011 EGD, [facility] [place]. 2013 COLONOSCOPY, [facility] [place]; CERVICAL SURGERY NOV [address] SAEZ. 2014 RIGHT BREAST LUMPECTOMY, (BENIGN), [facility] [place]. (POLYPS REMOVED FROM THROAT X 2 AND BOWEL X 1) Hx Anesthesia Reactions: No Infectious Disease History: No Infectious Disease History: Denies: History Other Infectious Disease, Traveled Outside the [place] in Last 30 Days - Family History Known Family History: Negative: Diabetes - Social History Alcohol Use: Weekly Alcohol Amount: "several beers" Hx Substance Use: No Substance Use Type: Reports: None Substance Use Comment - Amount & Last Used: Tramadol Hx Tobacco Use: Yes Smoking Status (MU): Light Every Day Tobacco Smoker Type: Cigarettes Amount Used/How Often: 3-4 CIGARETTES WEEK Length of Time of Smoking/Using Tobacco: 20 YEARS Have You Smoked in the Last Year: Yes Review of Systems Negative: Fever Negative: Blurred Vision All Other Systems Reviewed And Are Negative: Yes Physical Exam - Summary Physical Exam Summary: Appearance: The patient is well-nourished in no acute distress and in no acute pain. Skin: The skin is warm and dry and skin color reflects adequate perfusion. HEENT: ~The head is normocephalic and atraumatic. The pupils are equal and reactive. The conjunctivae are clear and without drainage. ~Nares are patent and without drainage. ~Mouth reveals moist mucous membranes and the throat is without erythema and exudate. ~The external ears are intact. The ear canals are patent and without drainage. The tympanic membranes are intact. Neck: the neck is supple with full range of motion and non-tender. There are no carotid bruits. ~There is no neck vein distension. Respiratory: Chest is non-tender. ~Lungs are clear to auscultation and breath sounds are symmetrical and equal. Cardiovascular: Heart is regular rate and rhythm. ~There is no murmur or rub auscultated. ~~There is no peripheral edema and pulses are symmetrical and equal. Abdomen: The abdomen is soft and non-tender. ~There are normal bowel sounds heard in all four quadrants and there is no organomegaly palpated. Musculoskeletal: There is no back tenderness noted. ~Extremities are non-tender with full range of motion. ~There is good capillary refill. ~There is no peripheral edema or calf tenderness elicited. Neurological: Patient is alert and oriented to person, place and time. ~The patient has symmetrical motor strength in all four extremities. ~Cranial nerves are grossly intact. Deep tendon reflexes are symmetrical and equal in all four extremities. Psychiatric: The patient has an appropriate affect and does not exhibit any anxiety or depression. Triage Information Reviewed: Yes Vital Signs On Initial Exam: Initial Vitals Temp Pulse Resp BP Pulse Ox 97.3 F 112 17 164/96 100 11/19/17 12:58 11/19/17 12:58 11/19/17 12:58 11/19/17 12:58 11/19/17 12:58 Vital Signs Reviewed: Yes Diagnostics - Vital Signs Vital Signs Temp Pulse Resp BP Pulse Ox 11/19/17 12:58 97.3 F 112 17 164/96 100 - Laboratory Lab Results: Lab Results 11/19/17 11/19/17 11/19/17 Range/Units 14:51 14:51 14:51 Hgb 10.1 L (12.0-16.0) g/dl Hct 30 L (35-47) % INR (Anticoag Therapy) 1.13 H (0.77-1.02) Ammonia 40 (16-53) mol/L Result Diagrams: 11/19/17 14:51 Lab Statement: Any lab studies that have been ordered have been reviewed, and results considered in the medical decision making process. Course/Dx - Course Course Of Treatment: MS. Bullock accidently took 16 mgs of warfarin last night instead of the 8 that her MD had recommended. She is normally on 4 mgs QHS but her INR yesterday was 1. It is too soon to see what her INR will be so Dr. Abbasi recommended holding the warfarin tonight and tomorrow night and following up in the office on Friday. - Diagnoses Provider Diagnoses: Accidental overdose - Physician Notifications Discussed Care Of Patient With: Marissa Abbasi Time Discussed With Above Provider: 14:37 Instructed by Provider To: Other - Dr. Abbasi, Oncologist, recommends to do an INR. Discharge - Discharge Plan Condition: Stable Disposition: HOME Referrals: Mahad Monique MD [Medical Doctor] - 2 Days Additional Instructions: Hold off on the Coumadin tonight and tomorrow night. Follow up with Dr. Monique, optic fibre drawer, in two days on Friday, November 21, 2017. Return to the emergency department for any new or worsening symptoms. The documentation as recorded by the Hesham odonnell Jennifer accurately reflects the service I personally performed and the decisions made by me, West Clement MD.
== END 2017-11-19 16:06 | disposition home or self-care (01) ==
LOC: ED 12:55
DX: T45.511A Poisoning by anticoagulants, accidental (unintentional), initial encounter (principal); Y92.9 Unspecified place or not applicable; Z79.01 Long term (current) use of anticoagulants; Z86.79 Personal history of other diseases of the circulatory system; F17.210 Nicotine dependence, cigarettes, uncomplicated
CPT/HCPCS: 36415; 82140; 85014; 85018; 85610; 99282

== ENCOUNTER 2019-10-08 20:21 | Emergency (ER) | payer MEDICARE ==
--- NOTE | 2019-10-08 21:08 | ED ---
Neck Pain - HPI Summary HPI Summary: 59-year-old female with significant past medical history of cervical spine fusion, pulmonary embolism presents to emergency department today complaining of left arm pain. She states her pain began one week ago and she does not recall any inciting factors. She states her pain is a 8 out of 10 and is made worse with movement. Patient reports decreased range of motion and ecchymosis along the left upper extremity. Patient is afraid she may have a blood clot today. Patient denies trauma or injury. She states she does take warfarin and last week she was therapeutic. Patient states she recently traveled on a plane approximately 2 days ago from [place]. She denies recent surgery or immobilization. Patient denies recent recreational drug use. Patient denies fever, chest, abdominal pain, shortness breath, rash. - History of Current Complaint Chief Complaint: EDNeckComplaint Stated Complaint: NERVE PAIN PER PT Time Seen by Provider: 10/08/19 21:07 Hx Obtained From: Patient Hx Last Menstrual Period: 1 week ago Onset/Duration Of Injury/Symptoms: Days Mechanism Of Injury: No Known Trauma Timing: Constant Onset/Duration: Gradual Onset, Started days ago Severity Initially: Mild Severity Currently: Severe Pain Intensity: 10 Pain Scale Used: 0-10 Numeric Location: Diffuse Character: Sharp, Aching Aggravating Factors: Movement Alleviating Factors: Position Associated Signs & Symptoms: Positive: Bruising - Allergies/Home Medications Allergies/Adverse Reactions: Allergies Allergy/AdvReac Type Severity Reaction Status Date / Time MS Azithromycin Allergy Intermediate Flushing Verified 10/08/19 20:26 [From Zithromax Z-[place]] MS Levofloxacin Allergy Intermediate Flushing Verified 10/08/19 20:26 [From Levaquin] MS Triamterene [Triamterene] Allergy Intermediate Blisters Verified 10/08/19 20: 26 MS Atenolol [Atenolol] Allergy ITCHY RASH Verified 10/08/19 20:26 MS Erythromycin Allergy Rash Verified 10/08/19 20:26 [Erythromycin] MS Gabapentin [Gabapentin] AdvReac Intermediate Nausea And Verified 10/08/19 20: 26 Vomiting PMH/Surg Hx/FS Hx/Imm Hx Endocrine/Hematology History: Reports: Hx Anticoagulant Therapy Denies: Hx Diabetes Cardiovascular History: Reports: Hx Hypertension Denies: Hx Pacemaker/ICD Respiratory History: Reports: Hx Pulmonary Embolism - 2006 TAKING XARELTO, Hx Seasonal Allergies Denies: Other Respiratory Problems/Disorders GI History: Denies: Other GI Disorders - denies History: Denies: Hx Renal Disease Musculoskeletal History: Reports: Other Musculoskeletal History - Neck Pain Sensory History: Reports: Hx Contacts or Glasses - READING GLASSES Denies: Hx Hearing Aid Opthamlomology History: Reports: Hx Contacts or Glasses - READING GLASSES Neurological History: Reports: Hx Headaches, Hx Seizures, Other Neuro Impairments/Disorders Psychiatric History: Reports: Hx Anxiety - CONTROL WITH MEDS, Hx Depression, Hx Bipolar Disorder Denies: Hx Panic Disorder - Cancer History Cancer Type, Location and Year: right breast lump removed (benign) Hx Chemotherapy: No Hx Radiation Therapy: No - Surgical History Surgery Procedure, Year, and Place: 11/2007 C5-C6 ACDF WITH BONE FUSION AND PLATING, [facility] [place]. 04/2008 BILATERAL TUBAL LIGATION, [facility] [place]. 2010 SIGMOIDOSCOPY, [facility] [place]. 2011 EGD, [facility] [place]. 2013 COLONOSCOPY, [facility] [place]; CERVICAL SURGERY NOV [address] SAEZ. 2014 RIGHT BREAST LUMPECTOMY, (BENIGN), [facility] [place]. (POLYPS REMOVED FROM THROAT X 2 AND BOWEL X 1) Hx Anesthesia Reactions: No Infectious Disease History: No Infectious Disease History: Denies: History Other Infectious Disease, Traveled Outside the [place] in Last 30 Days - Family History Known Family History: Positive: None - Per pt, Unknown Negative: Diabetes - Social History Alcohol Use: Weekly Alcohol Amount: "several beers" Hx Substance Use: No Substance Use Type: Reports: None Substance Use Comment - Amount & Last Used: Tramadol Hx Tobacco Use: Yes Smoking Status (MU): Light Every Day Tobacco Smoker Type: Cigarettes Amount Used/How Often: 3-4 CIGARETTES WEEK Length of Time of Smoking/Using Tobacco: 20 YEARS Have You Smoked in the Last Year: Yes Review of Systems Constitutional: Negative Eyes: Negative ENT: Negative Cardiovascular: Negative Respiratory: Negative Gastrointestinal: Negative Genitourinary: Negative Positive: Arthralgia, Myalgia, Decreased ROM. Negative: Edema Positive: Bruising. Negative: Rash Neurological: Negative Psychological: Normal All Other Systems Reviewed And Are Negative: Yes Physical Exam - Summary Physical Exam Summary: Patient has full range of motion in her neck. She is no nuchal rigidity or midline tenderness. Left upper trauma he has considerable ecchymosis noted to the medial aspect from the midhumerus to the distal forearm. There is no edema or erythema noted. Patient complains of pain with palpation throughout the left upper extremity. Patient has decreased range of motion left upper extremity. Patient is neurovascularly intact. Radial pulse 2+ with brisk capillary refill throughout. Triage Information Reviewed: Yes Vital Signs On Initial Exam: Initial Vitals Temp Pulse Resp BP Pulse Ox 99.7 F 114 16 138/105 97 10/08/19 20:23 10/08/19 20:23 10/08/19 20:23 10/08/19 20:23 10/08/19 20:23 Vital Signs Reviewed: Yes Appearance: Positive: Well-Appearing, No Pain Distress, Well-Nourished Skin: Positive: Warm, Skin Color Reflects Adequate Perfusion Eyes: Positive: EOMI, RALPH ENT: Positive: Hearing grossly normal Neck: Positive: Nontender Respiratory/Lung Sounds: Positive: Clear to Auscultation, Breath Sounds Present Cardiovascular: Positive: RRR, S2 Neurological: Positive: Sensory/Motor Intact, Alert, Oriented to Person Place, Time, Normal Gait, Speech Normal Psychiatric: Positive: Normal AVPU Assessment: Alert Procedures - Sedation Patient Received Moderate/Deep Sedation with Procedure: No Diagnostics - Vital Signs Vital Signs Temp Pulse Resp BP Pulse Ox 10/08/19 20:23 99.7 F 114 16 138/105 97 - Laboratory Result Diagrams: 10/08/19 21:28 10/08/19 21:28 Lab Statement: Any lab studies that have been ordered have been reviewed, and results considered in the medical decision making process. Neck Course/Dx - Course Course Of Treatment: Patient was evaluated. Vitals stable. Patient was examined and imaging was ordered. Patient's affect was abnormal and she appeared to be a poor historian. X-rays were obtained of the left upper extremity rule out fracture which resulted as negative with no evidence fracture. DVT study is done which showed no evidence of blood clot. After x- rays were done patient was able to move her left upper extremity easily with minimal pain. Patient had full range of motion. Patient is to follow-up with her primary care physician for further evaluation and management as there is no acute problems requiring intervention at this time. - Diagnoses Differential Dx/HQI/PQRI: Positive: Dislocation, Sprain, Strain, Other - DVT, fracture Provider Diagnoses: Arm pain, left Discharge ED - Sign-Out/Discharge Documenting (check all that apply): Patient Departure - Discharge Plan Condition: Stable Disposition: HOME Patient Education Materials: Arm Pain (ED) Referrals: Gomez Bell MD [Primary Care Provider] - 5 Days Additional Instructions: You were seen in the emergency department today for left arm pain. X-rays were done and showed no evidence of fracture and a DVT study was done and showed no evidence of blood clot in your left upper extremity. I'm not certain what is causing your pain however it is not life or limb threatening. Please return to the emergency department immediately if you develop any new or worsening symptoms. Please follow up with your primary care physician in 5-7 days for further evaluation and management. It was noted that your INR was not at therapeutic levels. Please address this with your primary care provider. Please take Tylenol as needed for pain. - Billing Disposition and Condition Condition: STABLE Disposition: Home
[2019-10-08 21:36] LABS: ABS Basophils 0.1 10^3/ul (0-0.2); ABS Eosinophils 0.1 10^3/ul (0-0.6); ABS Lymphocytes 0.9 10^3/ul (1.0-4.8); ABS Neutrophils 5.5 10^3/ul (1.5-7.7); Hematocrit 34 % (35-47); Hemoglobin 11.6 g/dL (12.0-16.0); Lymphocyte % 11.9 %; Mean Corpuscular HGB Conc 35 g/dL (31-36); Mean Corpuscular Hemoglobin 33 pg (27-31); Mean Corpuscular Volume 96 fL (80-97); Mean Platelet Volume 8.9 fL (7.4-10.4); Platelet Count 166 10^3/uL (150-450); Red Cell Distribution Width 13 % (10-15); White Blood Count 7.6 10^3/uL (3.5-10.8)
[2019-10-08 21:43] LABS: Activated Partial Thrombo Time 33.2 seconds (26.0-38.0); INR 1.4 (0.82-1.09)
[2019-10-08 21:52] LABS: Albumin 4.2 g/dL (3.2-5.2); Albumin/Globulin Ratio 1.2 (1-3); BUN/Creatinine Ratio 22.7 (8-20); C Reactive Protein 144.45 mg/L (<8.01); Calcium 8.6 mg/dL (8.6-10.3); EGFR African American 80.1 (>60); EGFR Non-African American 66.2 (>60); Globulin 3.4 g/dL (2-4); Potassium 3.8 mmol/L (3.5-5.0); Total Bilirubin 0.6 mg/dL (0.2-1.0); Total Protein 7.6 g/dL (6.4-8.9)
[2019-10-09 00:02] VITALS: BP 0/0
== END 2019-10-09 | disposition home or self-care (01) ==
LOC: ED 20:21
DX: M79.602 Pain in left arm (principal); R51 Headache; F17.210 Nicotine dependence, cigarettes, uncomplicated; Z79.01 Long term (current) use of anticoagulants; I10 Essential (primary) hypertension; I26.99 Other pulmonary embolism without acute cor pulmonale
CPT/HCPCS: 36415; 80053; 80320; 82550; 85025; 85610; 85730; 86140; 99282; G0480